=== PATIENT | male | born 1970 | race Caucasian/White ===

== ENCOUNTER → 2016-11-23 | Outpatient (CLI) | payer OTHER ==
[~2016-11-23] VITALS: Ht 184.2 cm; Wt 95.6 kg
[2016-11-23 15:10] VITALS: BP 158/105; PULSE 102; Ht 184.2 cm; Wt 95.6 kg
== END | disposition home or self-care (01) ==
LOC: C.NEUR 14:09
PROVIDERS: ATTEND Internal Medicine Pulmonary Disease
DX: G47.33 Obstructive sleep apnea (adult) (pediatric) (principal); G47.26 Circadian rhythm sleep disorder, shift work type

== ENCOUNTER → 2017-07-30 | Outpatient (CLI) | payer OTHER ==
[2017-07-30 10:25] LABS: ESTIMATED AVERAGE GLUCOSE 166 mg/dl; HA1C FLAG Normal (Normal)
[2017-07-30 10:38] LABS: ALT/SGPT 22 U/L (12-78); AST/SGOT 21 U/L (15-37); BLOOD UREA NITROGEN 20 mg/dl (7-18); BUN/CREATININE RATIO 21.1 (10-20); CARBON DIOXIDE 27 mmol/L (21-32); CHLORIDE 106 mmol/L (98-107); CHOLESTEROL 168 mg/dl (0-200); CREATININE 0.95 mg/dl (0.60-1.40); GLUCOSE 157 mg/dl (70-99); SODIUM 138 mmol/L (136-145); TRIGLYCERIDES 71 mg/dl (0-150); VERY LOW DENSITY LIPOPROT CALC 14 mg/dl
[2017-07-30 10:46] LABS: ALB/GLOB RATIO 1.2 (0.9-2); ALKALINE PHOSPHATASE 116 U/L (45-117); CHOLESTEROL/HDL RATIO 2.3; HDL CHOLESTEROL 73 mg/dl
== END | disposition home or self-care (01) ==
LOC: C.LAB 09:35
PROVIDERS: ATTEND Internal Medicine Endocrinology, Diabetes & Metabolism
DX: E10.9 Type 1 diabetes mellitus without complications (principal); E78.5 Hyperlipidemia, unspecified; E03.9 Hypothyroidism, unspecified

== ENCOUNTER 2017-09-03 23:37 | Emergency (ER) | payer OTHER ==
--- NOTE | 2017-09-03 23:41 | EMERGENCY ROOM VISIT NOTE ---
History First contact with patient: 23:39 Chief Complaint: OTHER COMPLAINT Stated Complaint: OTHER History of Present Illness The patient is a 46 year old male who presents to the Emergency Room with complaints of "body fluid exposure". 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 He then thoroughly irrigated this region. Source patient is undergoing testing. Review of Systems A complete 6-point Review of Systems was discussed with the patient, with pertinent positives and negatives listed in the History of Present Illness. All remaining Review of Systems questions can be considered negative unless otherwise specified. Past Medical/Surgical History Diabetes Family History No pertinent. Social History Patient lives locally and is employed locally. Physical Exam Physical Exam GENERAL -46-year-old male appearing his stated age who is in no acute distress. Communicates well with provider and answers questions appropriately. SKIN - Without rashes. No petechial rashes. The skin around the left eye is unremarkable. Left eye examination is unremarkable. Medical Decision & Procedures Medical Decision Patient was seen and evaluated as above. He presents to us today status post significant body fluid exposure as there was blood of the source patient mixed with the exposed employees left eye. Patient as well as the source patient have consented to baseline testing. Source patient testing is negative. Appropriate paperwork was initiated. A message was left with Braden Tamara Mann. Patient discharged in good condition. Impression Primary Impression: Exposure to blood or body fluid Departure Information Dispostion Home / Self-Care Condition GOOD Referrals Jared Del Angel M.D. (PCP) Patient Instructions My [facility] Additional Instructions You were seen in the emergency Department for exposure to blood/bodily fluids. At this time you have consent to baseline testing. Please call [phone] if you have any questions. Thank you Please follow with [facility].
--- NOTE | 2017-09-04 01:58 | EMERGENCY ROOM VISIT NOTE ---
ED Visit Note First contact with patient: 23:39 The patient was seen and examined with Rocky Perez PA-C. I agree with the history, physical and findings. Please see the note for disposition and details. Patient will follow-up with employee health tomorrow.
[2017-09-04 10:07] LABS: HEPATITIS B AB NEG
== END 2017-09-03 23:45 | disposition home or self-care (01) ==
LOC: C.EDD 23:39
DX: Z77.21 Contact with and (suspected) exposure to potentially hazardous body fluids (principal); Z20.9 Contact with and (suspected) exposure to unspecified communicable disease; E11.9 Type 2 diabetes mellitus without complications

== ENCOUNTER 2017-10-18 23:47 | Emergency (ER) | payer OTHER ==
[~2017-10-18] VITALS: Ht 182.9 cm; Wt 97.5 kg
[2017-10-18 23:51] VITALS: TEMP 36.8; O2SAT 97; Ht 182.9 cm; Wt 97.5 kg
[2017-10-18] MEDS ORDERED: SODIUM CHLORIDE 0.9% 1000ML 1,000 ML IV STA (23:57)
--- NOTE | 2017-10-19 00:07 | EMERGENCY ROOM VISIT NOTE ---
History Report prepared by Cata: Kitty Hopper Under the Supervision of: Dr. Stanley Nettles D.O. First contact with patient: 23:57 Chief Complaint: PALPITATIONS Stated Complaint: PALPATATIONS History of Present Illness The patient is a 46 year old male who presents to the Emergency Room with complaints of intermittent palpitations beginning 5 days ago. The patient states that he had a whole pot of coffee 5 days ago. He also reports that he stopped taking his thyroid medication 3 days ago. He reports that he felt the palpitations laying in bed tonight. The patient denies chest pain, nausea, shortness of breath, weight loss, and weight gain. He states that he is sore from chopping down a tree the other day. The patient states that he had a stress test done 1 year ago. Source of History: patient Onset: 5 days ago Position: chest Quality: other (palpitations ) Timing: intermittent Associated Symptoms: No chest pain, No SOB, No nausea Note: also denies: weight loss, weight gain Review of Systems See HPI for pertinent positives & negatives. A total of 10 systems reviewed and were otherwise negative. Family History No pertinent family history stated. Social History Smoking Status: Never Smoker Marital Status: Housing Status: lives with family, lives with roommate Occupation Status: employed Current/Historical Medications Scheduled Aspirin (Aspirin), 325 MG PO DAILY Atorvastatin (Lipitor), 40 MG PO DAILY Doxycycline (Monohydrate) (Doxycycline Monohydrate), 100 MG PO BID Insulin Human Lispro (Insulin Humalog Pump ), 1 EA N/A UD Levothyroxine Sodium (Levothyroxine Sodium), 100 MCG PO DAILY Allergies Coded Allergies: No Known Allergies (Unverified , 10/19/17) Physical Exam Vital Signs Date Time Temp Pulse Resp B/P (MAP) Pulse Ox O2 Delivery O2 Flow Rate FiO2 10/19/17 03:00 104 13 152/100 10/19/17 02:30 84 15 146/105 95 Room Air 10/19/17 02:00 91 19 141/98 10/19/17 01:36 91 16 157/107 95 Room Air 10/19/17 01:00 96 17 141/87 97 Room Air 10/19/17 00:30 92 21 158/104 96 Room Air 10/19/17 00:17 88 10/19/17 00:06 175/117 10/19/17 00:00 109 16 163/114 96 Room Air 10/18/17 23:58 108 10/18/17 23:57 105 10/18/17 23:51 97 Room Air 10/18/17 23:51 36.8 97 14 163/114 98 Room Air 10/18/17 23:51 97 Room Air Physical Exam GENERAL: Patient is awake, alert, and in no acute distress. Patient is resting comfortably and showing no signs of anxiety EYES: The conjunctivae are clear. The pupils are round and reactive. EARS, NOSE, MOUTH AND THROAT: The nose is without any evidence of any deformity. Mucous membranes are moist tongue is midline NECK: The neck is nontender and supple. RESPIRATORY: Normal respiratory effort is noted there is no evidence of wheezing rhonchi or rales CARDIOVASCULAR: Regular rate and irregular rhythm noted there no murmurs rubs or gallops normal S1 normal S2 GASTROINTESTINAL: The abdomen is soft. Bowel sounds are present in all quadrants. Abdomen is nontender MUSCULOSKELETAL/EXTREMITIES: There is no evidence of gross deformity full range of motion is noted in the hips and shoulders SKIN: There is no obvious evidence of any rash. There are no petechiae, pallor or cyanosis noted. NEUROLOGIC: Patient is awake alert and oriented x3 Medical Decision & Procedures ER Provider Diagnostic Interpretation: Chest X-Ray: Heart size is normal. No free air. No definite infiltrate. No acute disease. No previous. Preliminary Findings Only See Final Report For Complete Findings CTA CHEST: Comparison: None Impression: No PE. Mild bibasilar lung atelectasis. No pleural effusion or pneumothorax. Questionable stone at the gallbladder neck versus artifact. Comment: Lower neck soft tissues are normal No lymphadenopathy Normal heart size Radiologist: Meena Banks M.D. Study ready at 01:39 and initial results transmitted at 02:31 Laboratory Results 10/18/17 23:55 Red Blood Count 5.01, Mean Corpuscular Volume 88.2, Mean Corpuscular Hemoglobin 30.7, Mean Corpuscular Hemoglobin Concent 34.8, Mean Platelet Volume 9.6, Neutrophils (%) (Auto) 50.6, Lymphocytes (%) (Auto) 40.3, Monocytes (%) (Auto) 6.2, Eosinophils (%) (Auto) 2.3, Basophils (%) (Auto) 0.5, Neutrophils # (Auto) 4.26, Lymphocytes # (Auto) 3.39, Monocytes # (Auto) 0.52, Eosinophils # (Auto) 0.19, Basophils # (Auto) 0.04 10/18/17 23:55 Test 10/18/17 00:00 10/18/17 23:55 White Blood Count 8.41 K/uL (4.8-10.8) Red Blood Count 5.01 M/uL (4.7-6.1) Hemoglobin 15.4 g/dL (14.0-18.0) Hematocrit 44.2 % (42-52) Mean Corpuscular Volume 88.2 fL (80-100) Mean Corpuscular Hemoglobin 30.7 pg (25-34) Mean Corpuscular Hemoglobin Concent 34.8 g/dl (32-36) Platelet Count 233 K/uL (130-400) Mean Platelet Volume 9.6 fL (7.4-10.4) Neutrophils (%) (Auto) 50.6 % Lymphocytes (%) (Auto) 40.3 % Monocytes (%) (Auto) 6.2 % Eosinophils (%) (Auto) 2.3 % Basophils (%) (Auto) 0.5 % Neutrophils # (Auto) 4.26 K/uL (1.4-6.5) Lymphocytes # (Auto) 3.39 K/uL (1.2-3.4) Monocytes # (Auto) 0.52 K/uL (0.11-0.59) Eosinophils # (Auto) 0.19 K/uL (0-0.5) Basophils # (Auto) 0.04 K/uL (0-0.2) RDW Standard Deviation 41.7 fL (36.4-46.3) RDW Coefficient of Variation 13.1 % (11.5-14.5) Immature Granulocyte % (Auto) 0.1 % Immature Granulocyte # (Auto) 0.01 K/uL (0.00-0.02) Prothrombin Time 10.4 SECONDS (9.0-12.0) Prothromb Time International Ratio 1.0 (0.9-1.1) Activated Partial Thromboplast Time 26.9 SECONDS (21.0-31.0) Partial Thromboplastin Ratio 1.0 Anion Gap 9.0 mmol/L (3-11) Est Creatinine Clear Calc Drug Dose 103.4 ml/min Estimated GFR () 94.9 Estimated GFR (Non- 81.9 BUN/Creatinine Ratio 18.4 (10-20) Calcium Level 8.9 mg/dl (8.5-10.1) Magnesium Level 2.2 mg/dl (1.8-2.4) Total Bilirubin 0.4 mg/dl (0.2-1) Aspartate Amino Transf (AST/SGOT) 23 U/L (15-37) Alanine Aminotransferase (ALT/SGPT) 32 U/L (12-78) Alkaline Phosphatase 106 U/L (45-117) Total Creatine Kinase 191 U/L (39-308) Creatine Kinase MB 2.0 ng/ml (0.5-3.6) Creatine Kinase MB Ratio 1.0 (0-3.0) Troponin I 0.015 ng/ml (0-0.045) Total Protein 7.6 gm/dl (6.4-8.2) Albumin 4.0 gm/dl (3.4-5.0) Globulin 3.6 gm/dl (2.5-4.0) Albumin/Globulin Ratio 1.1 (0.9-2) Thyroid Stimulating Hormone (TSH) 6.050 uIu/ml (0.300-4.500) Free Thyroxine 1.14 ng/dl (0.80-1.60) Lyme Disease IgG Antibody NEG (NEG) Laboratory results per my review. Medications Administered Medications (Trade) Dose Ordered Sig/Bon Route Start Time Stop Time Status Last Admin Dose Admin Sodium Chloride 1,000 ml @ 999 mls/hr Q1H1M STAT IV 10/18/17 23:57 10/19/17 00:57 DC 10/19/17 00:06 999 MLS/HR Ceftriaxone Sodium 2000 mg/ Dextrose 70 ml @ 100 mls/hr ONE STAT IV 10/19/17 02:38 10/19/17 03:19 DC 10/19/17 02:57 100 MLS/HR ECG Indication: palpitations Rate (beats per minute): 98 Findings: no ectopy, other (no acute ST segment abnormalities ) Comparison ECG Date: no prior available Change: repeat ECG: sinus tachycardia, rate of 121, first degree AV block, ectopic atrial beats, changes new compared to earlier tracing ED Course 2355: The patient was evaluated in room B3B. A complete history and physical examination were performed. 2357: Ordered Sodium Chloride 1,000 ml @ 999 mls/hr IV. Medical Decision Differential diagnosis: Etiologies such as premature contractions, electrolyte abnormality, cardiac dysrhythmia, thyroid dysfunction, pulmonary embolism, infection, gastrointestinal, as well as others were entertained. Nursing notes reviewed. The patient is a 46-year-old male who presented to the emergency department for an evaluation of palpitations. The patient did not have any specific symptoms associated with the palpitations however he is noted that they are becoming more frequent and more apparent to him over the last few days. The patient denies having any chest pain or shortness of breath. At times the rate was tachycardic with what appeared to be frequent PACs but also could be consistent with a wandering atrial pacemaker. I discussed patient's laboratory and radiographic studies with him. He was treated with IV fluids and IV antibiotics in the emergency department for presumed Lyme disease. I discussed the patient' s condition with his primary care physician. He was encouraged to rest and avoid any strenuous activity. He was also encouraged to avoid any further caffeine intake. He was also encouraged to return the emergency apartment immediately if symptoms change worsen or the need arises. Medication Reconcilliation Current Medication List: was personally reviewed by me Blood Pressure Screening Patient's blood pressure: Elevated blood pressure Blood pressure disposition: Referred to PCP Consults Time Called: [phone] Consulting Physician: Dr Nadeem Zayas Returned Call: [phone] Impression Primary Impression: Palpitations Additional Impressions: PAC (premature atrial contraction) Tachycardia Scribe Attestation The scribe's documentation has been prepared under my direction and personally reviewed by me in its entirety. I confirm that the note above accurately reflects all work, treatment, procedures, and medical decision making performed by me. Departure Information Prescriptions Doxycycline (Monohydrate) (DOXYCYCLINE MONOHYDRATE) 100 Mg Tab 100 MG PO BID, #42 TABS Prov: Stanley Nettles, DO 10/19/17 Referrals Jared Del Angel M.D. (PCP) Patient Instructions My [facility] Problem Qualifiers
[2017-10-19 00:14] LABS: BASO % 0.5 %; BASO ABS # 0.04 K/uL (0-0.2); COMPLETE YES; EOS % 2.3 %; HEMATOCRIT 44.2 % (42-52); IG% 0.1 %; LYMPH % 40.3 %; LYMPH ABS # 3.39 K/uL (1.2-3.4); MEAN CELL VOLUME 88.2 fL (80-100); MEAN CORPUSCULAR HEMOGLOBIN 30.7 pg (25-34); MEAN CORPUSCULAR HGB CONC 34.8 g/dl (32-36); MEAN PLATELET VOLUME 9.6 fL (7.4-10.4); MONO % 6.2 %; NEUT % 50.6 %; PLATELET COUNT 233 K/uL (130-400); RED BLOOD COUNT 5.01 M/uL (4.7-6.1); WHITE BLOOD COUNT 8.41 K/uL (4.8-10.8)
[2017-10-19 00:26] LABS: PROTHROMBIN TIME (PATIENT) 10.4 SECONDS (9.0-12.0)
[2017-10-19 00:33] LABS: BUN/CREATININE RATIO 18.4 (10-20); CALCIUM 8.9 mg/dl (8.5-10.1); CREATININE 1.08 mg/dl (0.60-1.40); MAGNESIUM 2.2 mg/dl (1.8-2.4); POTASSIUM 3.4 mmol/L (3.5-5.1)
[2017-10-19 00:41] LABS: ALB/GLOB RATIO 1.1 (0.9-2); THYROID STIMULATING HORMONE 6.05 uIu/ml (0.300-4.500)
[2017-10-19] MEDS ORDERED: OPTIRAY 320 IV PRN (01:15)
[2017-10-19] MEDS ORDERED: ATOR-24 PO (01:42)
[2017-10-19] MEDS ORDERED: LEVO100T7 PO (01:42)
[2017-10-19] MEDS ORDERED: ASPI325T45 PO (01:42)
[2017-10-19] MEDS ORDERED: INSPMPHMLG (01:42)
[2017-10-19 02:14] LABS: LYME DISEASE AB IGG NEG (NEG)
[2017-10-19 02:21] LABS: LYME DISEASE AB IGM EQUIVOCAL (NEG)
[2017-10-19 02:30] VITALS: O2SAT 95
[2017-10-19] MEDS ORDERED: CEFTRIAXONE SOD INJ 2,000 MG in DEXTROSE 5% 50ML 50 ML IV STA (02:38)
[2017-10-19] MEDS ORDERED: DOXY100T17 PO (02:43)
[2017-10-19 03:00] VITALS: BP 152/100; PULSE 104
[2017-10-19 06:26] LABS: URINE APPEARANCE CLEAR (CLEAR); URINE BILIRUBIN NEG (NEG); URINE COLOR YELLOW; URINE NITRITE NEG (NEG); URINE SPECIFIC GRAVITY 1.015 (1.000-1.030); UROBILINOGEN NEG (NEG)
[2017-10-19 06:27] LABS: MANUAL MICROSCOPIC REQUIRED? NO; REVIEW REQ? NO
--- NOTE | 2017-10-19 06:39 | DIAGNOSTIC IMAGING REPORT ---
(CHEST FOR PE) ANGIO WITH CT DOSE: 513.51 mGy.cm HISTORY: 46 years-old Male presents with acute cardiac palpitations years TECHNIQUE: Multiple CTA images of the chest were obtained after the intravenous administration of 92 ml Optiray 320. Coronal and sagittal MIPS were obtained from the axial data set and were submitted for review. A dose lowering technique was utilized adhering to the principles of ALARA. COMPARISON: Portable chest radiograph 10/19/2017. FINDINGS: CTA: There is adequate opacification of the pulmonary arteries to the level of the distal segmental branches without convincing evidence of acute pulmonary embolism. The thoracic aorta is normal in course and caliber without aneurysm or dissection. Heart size is normal. CT CHEST: No dominant thyroid nodule is seen. No pathologically adenopathy by CT size criteria. There is no pneumothorax, pleural effusion or focal airspace consolidation. Mild dependent bibasilar atelectasis. 4 mm subpleural nodule seen within the right middle lobe, image 112 series 4 which is statistically benign, however is indeterminate. Central airways are patent. Perifissural lymph node is seen on image 150 series 4 adjacent to the right middle lobe. Increased attenuation near the gallbladder neck, image 1 of series 4 may be artifactual or alternatively may reflect cholelithiasis. The osseous structures appear intact. IMPRESSION: 1. No acute intrathoracic abnormality identified, specifically no acute aortic pathology or evidence of pulmonary thromboembolic disease. 2. 4 mm pleural-based solid nodule of the right middle lobe is indeterminate, however statistically benign. Please refer to below summary of Fleischner criteria recommendations for follow-up of incidental CT nodules ([place], Guidelines for management of small pulmonary nodules detected on CT scans: A statement from the Fleischner Society, Radiology 237: [phone].) SOLID NODULES Solitary nodule size: <6 mm * Low risk patients: no follow-up needed * high risk patients: optional CT at 12 months Note: newly detected indeterminate nodule in persons 35 years of age or older. * Low risk patients: minimal or absent history of smoking and/or other known risk factors * high risk patients: history of smoking or of other known risk factors (e.g. first degree relative with lung cancer, or exposure to asbestos, radon, uranium) * if a nodule up to 8 mm is partly solid or is ground glass further follow-up is required after 24 months to exclude possible slow growing adenocarcinoma (DANIEL) The above report was generated using voice recognition software. It may contain grammatical, syntax or spelling errors. Electronically signed by: Jasbir Gonzales M.D. 10/19/2017 6:37 AM Dictated Date/Time: 10/19/2017 6:31 AM
--- NOTE | 2017-10-19 08:24 | DIAGNOSTIC IMAGING REPORT ---
CHEST ONE VIEW PORTABLE HISTORY: 46 years-old Male EVALUATE RESPIRATORY DISTRESS.DYSPNEA acute respiratory distress COMPARISON: CTA of the chest of same day TECHNIQUE: Portable upright AP view of the chest FINDINGS: Cardiomediastinal and hilar silhouettes are within normal limits. There is no pneumothorax, pleural effusion, focal airspace consolidation or overt pulmonary edema. Bones of the chest are grossly intact. IMPRESSION: No acute cardiopulmonary process. The above report was generated using voice recognition software. It may contain grammatical, syntax or spelling errors. Electronically signed by: Jasbir Gonzales M.D. 10/19/2017 8:23 AM Dictated Date/Time: 10/19/2017 8:22 AM
== END 2017-10-19 03:41 | disposition home or self-care (01) ==
LOC: C.EDB 23:48
DX: I49.1 Atrial premature depolarization (principal); R00.2 Palpitations; R00.0 Tachycardia, unspecified; Z79.82 Long term (current) use of aspirin; Z79.4 Long term (current) use of insulin; Z79.899 Other long term (current) drug therapy

== ENCOUNTER → 2017-11-10 | Outpatient (CLI) | payer OTHER ==
[~2017-11-10] MED LIST: ASPECOTC PO; ATOR-24 PO; DOXY100T17 PO; INSPMPHMLG; LEVO100T7 PO
[2017-11-10 10:29] LABS: INFLUENZA B PCR Neg for Influ B (NEG)
[2017-11-10 10:30] LABS: INFLUENZA A PCR POS for Influ A (NEG)
== END | disposition home or self-care (01) ==
LOC: C.LAB 09:14
PROVIDERS: ATTEND Emergency Medicine
DX: R05 Cough (principal); R09.81 Nasal congestion

== ENCOUNTER 2021-04-22 11:03 | Inpatient (IN) ==
[2021-04-22] MEDS ORDERED: ONDANSETRON INJ 2 MG/ML 2 ML VIAL ONE (11:07)
[2021-04-22] MEDS ORDERED: ONDANSETRON INJ 2 MG/ML 2 ML VIAL IV STA (11:11)
[2021-04-22] MEDS ORDERED: SODIUM CHLORIDE 0.9% 1000ML 1,000 ML IV SCH ×3 (11:15→17:34)
[2021-04-22] MEDS ORDERED: SODIUM CHLORIDE 0.9% 1000ML 1,000 ML IV ONE (11:16)
[2021-04-22 11:23] LABS: Mean Corpuscular Hgb Conc 33.7 g/dL (32-36); Platelet Count 305 K/uL (130-400)
[2021-04-22 11:47] LABS: Base Excess VBG -9.9 mEq/L; Oxygen Saturation VBG 80.4 %; pH VBG 7.25 (7.36-7.41)
[2021-04-22 11:58] LABS: Appearance Urine Clear (Clear); Bilirubin Urine Negative (Negative); Blood Urine Negative (Negative); Color Urine Yellow; Glucose Urine UA 3+ (Negative); Ketones Urine 3+ (Negative); Leukocyte Esterase Urine Negative (Negative); Nitrite Urine Negative (Negative); Protein Urine Negative (Negative); Specific Gravity Urine 1.029 (1.000-1.030); Urobilinogen Urine Negative (Negative)
[2021-04-22 12:01] LABS: Albumin Globulin Ratio 1.4 (0.9-2); Albumin Level 4.3 gm/dl (3.4-5.0); BUN Creatinine Ratio 20.6 (10-20); Bilirubin,Total 1.2 mg/dl (0.2-1); Calcium 9.3 mg/dl (8.5-10.1); Creatinine Clr Calc Pharmacy 65.5 ml/min; Est GFR (Non-African American) 54.4 ml/min; Globulin 3.2 gm/dl (2.5-4.0); Magnesium 2.3 mg/dl (1.8-2.4); Potassium 4.3 mmol/L (3.5-5.1); Thyroid Stimulating Hormone 0.654 uIu/ml (0.300-4.500); Total Protein 7.5 gm/dl (6.4-8.2)
[2021-04-22 12:02] LABS: Basophils # (auto) 0.03 K/uL (0-0.2); Basophils % (auto) 0.2 %; Hematocrit (blood only) 45.4 % (42-52); Hemoglobin 15.3 g/dL (14.0-18.0); Immature Granulocytes # (auto) 0.04 K/uL (0.00-0.02); Immature Granulocytes % (auto) 0.2 %; Lymphocytes # (auto) 1.38 K/uL (1.2-3.4); Lymphocytes % (auto) 8.2 %; Mean Corpuscular Hemoglobin 31.4 pg (25-34); Mean Corpuscular Volume 93.2 fL (80-100); Monocytes # (auto) 0.61 K/uL (0.11-0.59); Monocytes % (auto) 3.6 %; Neutrophils # (auto) 14.73 K/uL (1.4-6.5); Neutrophils % (auto) 87.8 %; Red Blood Count 4.87 M/uL (4.7-6.1); White Blood Count 16.79 K/uL (4.8-10.8)
[2021-04-22] MEDS ORDERED: DKA GOAL RANGE 150-250 mg/dl ONE ×2 (12:07→17:34)
[2021-04-22] MEDS ORDERED: ED DKA INSULIN DRIP ONE (12:07)
[2021-04-22] MEDS ORDERED: NovoLIN-R BOLUS FROM BAG IV ONE (12:14)
[2021-04-22] MEDS ORDERED: GLUCOSE 40% GEL 15 GM TUBE PO PRN (12:15)
[2021-04-22] MEDS ORDERED: CARBOHYDRATES FOR HYPOGLYCEMIA PO PRN (12:15)
[2021-04-22] MEDS ORDERED: GLUCAGON FOR INJ 1 MG VIAL IM PRN (12:15)
[2021-04-22] MEDS ORDERED: DEXTROSE 50% 50 ML SYRINGE IV PRN (12:15)
[2021-04-22] MEDS ORDERED: GLUCOSE 10 TABS/TUBE PO PRN (12:15)
[2021-04-22] MEDS ORDERED: INSULIN REGULAR 250 UNITS in SODIUM CHLORIDE 0.9% 247.5 ML IV SCH ×2 (12:15→17:34)
[2021-04-22] MEDS ORDERED: SODIUM CHLOR 0.45% + 20MEQ KCL 20 MEQ/1,000 ML BAG IV SCH (12:45)
--- NOTE | 2021-04-22 12:54 | Electrocardiogram Report ---
Test Reason : Blood Pressure : / mmHG Vent. Rate : 095 BPM Atrial Rate : 095 BPM P-R Int : 152 ms QRS Dur : 084 ms QT Int : 370 ms P-R-T Axes : 045 021 061 degrees QTc Int : 464 ms Normal sinus rhythm Normal ECG When compared with ECG of 18-OCT-2017 23:56, NE interval has decreased Incomplete right bundle branch block no longer present Confirmed by Kiran Toscano ([id number]) on 04/22/2021 12:54:09 PM Referred By: REFERRED SELF Confirmed By:Kiran Toscano
--- NOTE | 2021-04-22 15:52 | History & Physical Report ---
Date of Service April 22, 2021 Assessment & Plan (1) Diabetes type 1, controlled: Patient in DKA with an anion gap of 18 bicarbonate of 19 on serum VBG with pH 7.25 to be put on the DKA protocol he was given crystalloid resuscitation in the emergency department Patient cannot recall an inciting event for his diabetes to decompensate it may be a mechanical failure of his meter and/or his pump connection site we are attempting to get him a new meter and he did he will replace his site once we return from the insulin drip to his insulin pump No additional treatment for any infectious etiologies will be undertaken, he did have negative Covid testing Patient will be on lisinopril for nephro prophylaxis for his diabetes (2) Dyslipidemia: Continue atorvastatin 80 (3) Hypothyroidism: Synthroid will continue (4) Atrial tachycardia: Patient is on Cardizem 240 this will be maintained he took his dose this morning of admission History of Present Illness Primary Care Provider: Jared Mann MD 58-year-old male who is type I diabetic usually on an insulin pump who presents with increased nausea some visual changes and weakness and lethargy. Patient states that overnight he was awoken with a notification that his glucose was elevated. He attempted to bolus himself and he also did change out his insulin pump site he has been trying to manage his glucose at work the morning of presentation with boluses. It however was noted that when we compared the emergency department's glucometer and his glucometer his glucometer seem to be lower by around a level of 200. Patient states that overnight his glucometer was in the higher or near 500 range currently he may have been really 700. Patient to take all his other typical daily medications prior to her coming to his worksite this morning he is feeling much better after fluid resuscitation. He did have the beginnings of DKA with the decrease in his bicarbonate and anion gap of 18 Allergies Allergy/AdvReac Type Severity Reaction Status Date / Time No Known Drug Allergies Allergy Verified 04/22/21 13:43 Home Medications Medication Instructions Recorded Confirmed Type aspirin 325 mg tablet 325 mg PO DAILY tab 08/28/19 04/22/21 History diltiazem HCl 240 mg 240 mg PO DAILY cap 08/28/19 04/22/21 History capsule,extended release 24 hr insulin U-500 syringe-needle / #100 ea 08/28/19 12/26/20 History mL 31 gauge x 15/64" atorvastatin 80 mg tablet 80 mg PO DAILY #90 tab 04/25/20 04/22/21 Rx Accu-Chek Fastclix Lancet Drum #300 ea NS 05/16/20 12/26/20 Rx Accu-Chek Guide test strips #300 ea NS 05/16/20 12/26/20 Rx Novolog U-100 Insulin aspart 100 100 units CONTINUOUS SUBCUTANEOUS 05/16/20 04/22/21 Rx unit/mL subcutaneous solution INFUSION DAILY 90 Days #90 ml NS lisinopril 5 mg tablet 5 mg PO DAILY #90 tab 12/26/20 04/22/21 Rx cholecalciferol (vitamin D3) 50 2,000 unit PO DAILY #30 cap 03/20/21 04/22/21 Rx mcg (2,000 unit) capsule levothyroxine 112 mcg tablet 112 mcg PO DAILY #90 tab 03/20/21 04/22/21 Rx Past Med/Surg History Medical History (Updated 12/25/19 @ 16:17 by Kashmir Lockett MD) Diabetes type 1, controlled Dyslipidemia James's thyroiditis Hypertension Hypothyroidism Social History (Updated 12/25/19 @ 15:33 by Farida Montalvo) Smoking Status: Never smoker Hx Alcohol Use: Yes Alcohol Intake Frequency Comment: Social Preferred Language: Pashto Feels Safe at Home: Yes Review of Systems Review of Systems: Moderate distress and fatigue no headache, no visual changes no speech or swallowing issues no chest pain, pressure or palpitations no shortness of breath, cough or wheezes no abdominal pain, some persistent nausea without vomiting, no diarrhea or constipation no dysuria, hematuria or frequency no focal joint pain or swelling no back pain, CVA tenderness or radicular pain no bruising, bleeding or rashes no focal signs of weakness or numbness or altered sensation no complaints of anxiety or depression.. Physical Exam Physical Exam: The patient appeared well nourished and normally developed. Vital signs as documented. Head exam is normocephalic atraumatic Neck is without JVD, thyromegaly, or carotid bruits. Lungs are clear to auscultation, no focal loss of breath sounds Cardiac exam, Rhythm is regular.. No murmurs, rubs or gallops. Abdominal exam reveals normal bowel sounds, soft non tender, no masses Extremities are nonedematous and both pedal pulses are present Neurologic exam is alert and oriented, no focal loss of strength or sensation Skin is without bruises or rashes Psychologically is without concerns for anxiety or depression Results & Data Results & Data ([facility]) Vital Signs (Past 12 Hours) Vital Signs Temp Pulse Pulse Resp BP BP Pulse Ox 04/22/21 14:30 88 18 124/78 98 04/22/21 11:04 98.1 F 99 H 20 126/64 98 Code Status & VTE Plan VTE Prophylaxis Plan VTE Prophylaxis will be ordered: No PG Care Time/CCT Total # of Minutes Spent Total Time Spent with Patient: Total time spent is greater than 50% in coordination of care (as documented) at patient's floor/unit and/or counseling patient: Coding Level of Care Code 62919 Initial Inpt Care Lvl 2 Diagnoses Diabetes type 1, controlled E10.9 Dyslipidemia E78.5 Hypothyroidism E03.9 Atrial tachycardia I47.1
[2021-04-22] MEDS ORDERED: D5W AND 1/2NSS + 20MEQ KCL 20 MEQ/1,000 ML BAG IV SCH (16:45)
[2021-04-22] MEDS ORDERED: PENDING D5 1/2NS+20mEq KCL IVF SCH (17:34)
[2021-04-22] MEDS ORDERED: NORMOSOL-R 1,000 ML IV SCH (17:34)
[2021-04-22] MEDS ORDERED: INSULIN ASPART 100 UNITS/ML 3 ML PEN SC SCH (17:34)
[2021-04-22] MEDS ORDERED: PENDING 1/2NSS+20mEq KCL IVF SCH (17:34)
[2021-04-22] MEDS ORDERED: DC ALL PREVIOUSLY ORDERED DIABETES MEDS ONE (17:34)
[2021-04-22] MEDS ORDERED: ONDANSETRON INJ 2 MG/ML 2 ML VIAL IV PRN (17:34)
[2021-04-22] MEDS ORDERED: ACETAMINOPHEN 325 MG TAB PO PRN (17:34)
[2021-04-22] MEDS ORDERED: ALUMINUM/MAGNESIUM SUSP 30 ML UDC PO PRN (17:34)
[2021-04-22] MEDS ORDERED: PHARMACY GLYCEMIC MGMT CONSULT PRN (17:52)
[2021-04-22] MEDS: INSULIN ASPART 100 UNITS/ML 3 ML PEN SC SCH ×3 (18:15→21:16)
[2021-04-22 18:47] LABS: BUN Creatinine Ratio 18.5 (10-20); Calcium 8.2 mg/dl (8.5-10.1); Creatinine Clr Calc Pharmacy 69.8 ml/min; Est GFR (Non-African American) 58.7 ml/min; Magnesium 2.2 mg/dl (1.8-2.4); Phosphorus 2.5 mg/dl (2.5-4.9)
--- NOTE | 2021-04-22 19:51 | Pharmacy Report ---
Pharmacy Glycemic Short Note 2 - Date of Service April 22, 2021 - Glycemic Short BSG Results (Last 24 hours): 04/22/21 04/22/21 04/22/21 11:05 12:30 13:57 Glucose 528 H* POC Glucose 451 H* 376 H* 04/22/21 04/22/21 04/22/21 15:03 16:20 17:31 Glucose POC Glucose 298 H 202 H 241 H 04/22/21 18:06 Glucose POC Glucose 277 H OUTPATIENT ANTIDIABETIC REGIMEN: * Medtronic 670G insulin pump- Novolog * Basal: 1.05 units/hr x 24 hours * CR 1:10 * CF 45 * A1c 8.2% 03/16/21 ASSESSMENT: * 50 yo with history of type 1 diabetes treated outpatient with Medtronic 670G insulin pump (Novolog) admitted with mild DKA. * Dextrose + Potassium added to IVF once patient within goal range, however, BSGs trended upward after addition, patient ordered diet and did have some uncovered carbohydrates. Gap closed on repeat labs, bicarb 22, VBG 7.41. * Discussed with physician, removed dextrose from fluids, infusion rate may need empirically adjusted if BSGs fall too quickly with removal. Per physician will keep same goal range for now, drip will target BSG of 200 mg/dL. * Plan to continue insulin infusion throughout the night and transition to insulin pump in the morning when new pump supplies are available. PLAN FOR INPATIENT GLYCEMIC CONTROL: * Insulin infusion currently running @ 7.4 units/hr- will reduce to ~0.05 unit/kg (4.5 units/hr) with next check if BSG declining rapidly
[2021-04-22] MEDS: POTASSIUM CHLORIDE 20 MEQ in SODIUM CHLORIDE 0.45 % 1,000 ML IV SCH (20:09)
[2021-04-22 22:13] LABS: BUN Creatinine Ratio 17.2 (10-20); Calcium 8.5 mg/dl (8.5-10.1); Creatinine Clr Calc Pharmacy 60.6 ml/min; Est GFR (African American) 57.4 ml/min; Est GFR (Non-African American) 49.5 ml/min; Magnesium 2.4 mg/dl (1.8-2.4); Phosphorus 2.3 mg/dl (2.5-4.9); Potassium 4.3 mmol/L (3.5-5.1)
[2021-04-23] MEDS ORDERED: NovoLOG INSULIN PUMP SCH (01:00)
[2021-04-23] MEDS ORDERED: INSULIN ASPART 100 UNITS/ML VIAL SC PRN (01:00)
[2021-04-23 01:58] LABS: BUN Creatinine Ratio 24.5 (10-20); Creatinine Clr Calc Pharmacy 85.8 ml/min; Est GFR (African American) 87.4 ml/min; Est GFR (Non-African American) 75.4 ml/min; Magnesium 2.1 mg/dl (1.8-2.4); Potassium 4.3 mmol/L (3.5-5.1)
[2021-04-23 02:00] LABS: Phosphorus 2.9 mg/dl (2.5-4.9)
[2021-04-23] MEDS: POTASSIUM CHLORIDE 20 MEQ in SODIUM CHLORIDE 0.45 % 1,000 ML IV SCH (03:35)
[2021-04-23] MEDS ORDERED: LEVOTHYROXINE SODIUM 112 MCG TABLET PO SCH (06:30)
[2021-04-23 07:03] LABS: BUN Creatinine Ratio 21.5 (10-20); Calcium 8.3 mg/dl (8.5-10.1); Creatinine Clr Calc Pharmacy 82.9 ml/min; Est GFR (African American) 83.8 ml/min; Est GFR (Non-African American) 72.3 ml/min; Magnesium 2.3 mg/dl (1.8-2.4)
[2021-04-23 07:17] LABS: Beta-Hydroxybutyrate 28.07 mg/dl (0.2-2.81)
[2021-04-23] MEDS: INSULIN ASPART 100 UNITS/ML 3 ML PEN SC SCH (08:07)
[2021-04-23] MEDS ORDERED: lisinopril 5 MG TAB PO SCH (09:00)
[2021-04-23] MEDS ORDERED: ATORVASTATIN 40 MG TAB PO SCH (09:00)
[2021-04-23] MEDS ORDERED: ASPIRIN 325 MG ECTAB PO SCH (09:00)
[2021-04-23] MEDS ORDERED: dilTIAZem HCL 240 MG CAPCR PO SCH (09:00)
[2021-04-23] MEDS ORDERED: CHOLECALCIFEROL 1,000 UNITS 25 MCG TAB PO SCH (09:00)
[2021-04-23] MEDS ORDERED: INSULIN GLARGINE SOLOSTAR 100 UNITS/ML 3 ML PEN SC ONE (10:00)
--- NOTE | 2021-04-23 10:09 | Pharmacy Report ---
Pharmacy Glycemic Short Note 2 - Date of Service April 23, 2021 - Glycemic Short BSG Results (Last 24 hours): 04/22/21 04/22/21 04/22/21 11:05 12:30 13:57 Glucose 528 H* POC Glucose 451 H* 376 H* 04/22/21 04/22/21 04/22/21 15:03 16:20 17:31 Glucose POC Glucose 298 H 202 H 241 H 04/22/21 04/22/21 04/22/21 18:06 18:22 18:59 Glucose 295 H POC Glucose 277 H 275 H 04/22/21 04/22/21 04/22/21 20:02 21:06 21:37 Glucose 223 H POC Glucose 298 H 245 H 04/22/21 04/22/21 04/22/21 22:03 23:02 23:58 Glucose POC Glucose 191 H 132 H 128 H 04/23/21 04/23/21 04/23/21 01:25 05:46 05:48 Glucose 205 H POC Glucose 310 H* 347 H* 04/23/21 04/23/21 04/23/21 05:56 06:42 07:20 Glucose 306 H* POC Glucose 252 H 261 H 04/23/21 04/23/21 07:58 09:02 Glucose POC Glucose 205 H 231 H OUTPATIENT ANTIDIABETIC REGIMEN: * Med[employer]onic 670G insulin pump- Novolog * Basal: 1.05 units/hr x 24 hours * CR 1:10 * CF 45 * A1c 8.2% 03/16/21 ASSESSMENT: 04/23/21 * Patient attempted to transition back to insulin pump last night, but blood sugars climbed back up d/t pump failure. Patient restarted on insulin drip, currently running at 2.8units/hr. * Patient's only issue at this time is hyperglycemia/pump failure, will give Lantus dose to cover patient and send home. Discussed plan with patient, he has all new supplies at home and he will try them when he gets home, if those fail he will call [employer] for new pump, which will arrive within 24 hours. * If pump fails, patient aware to take additional dose of Lantus tonight if BSG > 180mg/dl. * If pump works and blood sugars trending down/ causing hypoglycemia, pt aware to hold his basal rate for a few hours until euglycemic while Lantus is on board with pump. * Reviewed using Novolog and Lantus pen with patient, patient competent to use to prevent re-admission. * Reviewed with JENNIFER Cox to send home both insulin pens and needles. * Patient has CGM. * Patient has plenty of insulin for pump. 04/22/21 * 50 yo with history of type 1 diabetes treated outpatient with Med[employer]onic 670G insulin pump (Novolog) admitted with mild DKA. * Dextrose + Potassium added to IVF once patient within goal range, however, BSGs trended upward after addition, patient ordered diet and did have some uncovered carbohydrates. Gap closed on repeat labs, bicarb 22, VBG 7.41. * Discussed with physician, removed dextrose from fluids, infusion rate may need empirically adjusted if BSGs fall too quickly with removal. Per physician will keep same goal range for now, drip will target BSG of 200 mg/dL. * Plan to continue insulin infusion throughout the night and transition to insulin pump in the morning when new pump supplies are available. PLAN FOR INPATIENT GLYCEMIC CONTROL: * Insulin infusion - 2.8 units/hr - overlap 2 hours with Lantus, then DC for discharge * Lantus 25 units SQ x 1 dose now * Discharge home and restart pump * Patient to take Novolog and Lantus pens home and use if needed for further pump failures * Lantus SQ tonight for pump failure * Hold basal rate temporarily on pump at home if hypoglycemic with Lantus on board
--- NOTE | 2021-04-23 17:22 | Discharge Summary ---
Date of Service April 23, 2021 Admission HPI Per Admitting Provider 58-year-old male who is type I diabetic usually on an insulin pump who presents with increased nausea some visual changes and weakness and lethargy. Patient states that overnight he was awoken with a notification that his glucose was elevated. He attempted to bolus himself and he also did change out his insulin pump site he has been trying to manage his glucose at work the morning of presentation with boluses. It however was noted that when we compared the emergency department's glucometer and his glucometer his glucometer seem to be lower by around a level of 200. Patient states that overnight his glucometer was in the higher or near 500 range currently he may have been really 700. Patient to take all his other typical daily medications prior to her coming to his worksite this morning he is feeling much better after fluid resuscitation. He did have the beginnings of DKA with the decrease in his bicarbonate and anion gap of 18 Principal Diagnosis Diabetic Keto Acidosis Discharge Exam The patient appeared well Vital signs as documented. Lungs are clear to auscultation and appear unlabored Cardiac exam, Rhythm is regular.. No murmurs, rubs or gallops. Abdominal exam reveals normal bowel sounds, soft non tender, no masses Extremities are nonedematous and both pedal pulses are normal. Neurologic exam is alert and oriented, no focal loss of strength or sensation Skin is without bruises or rashes Psychologically is without concerns for anxiety or depression. Discharge Data Allergies Allergy/AdvReac Type Severity Reaction Status Date / Time No Known Drug Allergies Allergy Verified 04/22/21 13:43 Hospital Course (1) Diabetes type 1, controlled: Patient in DKA with an anion gap of 18 bicarbonate of 19 on serum VBG with pH 7.25 to be put on the DKA protocol he was given crystalloid resuscitation in the emergency department Patient cannot recall an inciting event for his diabetes to decompensate it may be a mechanical failure of his meter and/or his pump connection site we are attempting to get him a new meter and he did he will replace his site once we return from the insulin drip to his insulin pump, however he will have a new pump mailed to him and will be on bolus lantus 25 sc bid until the pump arrives in the main, pt was given supplies. No additional treatment for any infectious etiologies will be undertaken, he did have negative Covid testing Patient will be on lisinopril for nephro prophylaxis for his diabetes, (2) Dyslipidemia: Continue atorvastatin 80 (3) Hypothyroidism: Synthroid will continue (4) Atrial tachycardia: Patient is on Cardizem 240 this will be maintained he took his dose this morning of admission Total Time Total Time Spent Total Time Spent (In Minutes): It required greater than 30 minutes to prepare this patient for discharge Discharge Plan Discharge Items Patient Disposition: Home - Self-Care Reason For Visit: DIABETIC KETOACIDOSIS Discharge Diagnosis: diabetic ketoacidosis Activity: Resume your previous activity Non-emergency contact: Primary Care Provider Call non-emergency contact if: you have any medication questions Follow-up/Referrals: Jared Mann MD [Primary Care Provider] - Diet: Carb Count or DM1 Addtl Attending Provider Instructions: please hydrate and follow glucoses carefully if your pump is not working well, please use subcutaneous insulin twice a day Pending Studies at Discharge: No Stand-Alone Forms: My vLine, Smoking Cessation Medications and DC Order Prescriptions: New Basaglar KwikPen U-100 Insulin 100 unit/mL (3 mL) insulin pen 25 unit subcut BID Qty: 6 RF: 5 Basaglar KwikPen U-100 Insulin 100 unit/mL (3 mL) insulin pen 25 unit subcut BID Qty: 6 RF: 0 Continued atorvastatin 80 mg tablet 80 mg PO DAILY Qty: 90 RF: 3 (DME) Accu-Chek Guide test strips Strip See Dose Instructions .ROUTE .MEDSUPPLY Qty: 300 RF: 3 Novolog U-100 Insulin aspart 100 unit/mL solution 100 units continuous subcutaneous infusion DAILY 90 Days Qty: 90 RF: 3 (DME) lancets [Accu-Chek Fastclix Lancet Drum] Misc See Dose Instructions .ROUTE .MEDSUPPLY Qty: 300 RF: 3 levothyroxine 112 mcg tablet 112 mcg PO DAILY Qty: 90 RF: 3 cholecalciferol (vitamin D3) 50 mcg (2,000 unit) capsule 2,000 unit PO DAILY Qty: 30 RF: 0 aspirin 325 mg tablet 325 mg PO DAILY RF: 0 (DME) BD Insulin Syringe U-500 1/2 mL 31 gauge x 15/64" syringe See Dose Instructions .ROUTE .MEDSUPPLY Qty: 100 RF: 0 diltiazem HCl 240 mg capsule,extended release 24hr 240 mg PO DAILY RF: 0 lisinopril 5 mg tablet 5 mg PO DAILY Qty: 90 RF: 3 Discharge Orders: Discharge Order (Routine); Ordered 04/23/21 Ordered By: Yo Oliva/Other Patient Handouts: Diabetes: Sick-Day Plan Admission Data Admit Date/Time: 04/22/21 12:44 Attending Provider: Yo Gonzáles Admit Provider: Yo Gonzáles Primary Care Provider: Jared Mann Other Interventions: Discharge Summary Assessment (RN) Last Done: 04/23/21 10:45 Coding Level of Care Code D/C Day Management >30 mins Diagnoses Diabetes type 1, controlled E10.9 Dyslipidemia E78.5 Hypothyroidism E03.9 Atrial tachycardia I47.1
--- NOTE | 2021-04-23 20:18 | Emergency Department Note ---
History of Present Illness General Chief complaint: Hyperglycemia Time Seen by Provider: 04/22/21 11:09 Source: patient and RN notes reviewed Mode of arrival: ambulatory Limitations: no limitations History of Present Illness Provider complaint: Nausea, vomiting, high blood sugars This patient is a 50-year-old male who presents emergency department with complaints of nausea, vomiting and elevated blood sugars. Patient states his blood sugars have been high for at least 24 hours between 300 and 400. He has been up urinating frequently throughout the night. He does wear an insulin pump and the sensor has been changed. He states he changed the site last night before bed. Patient also states he had ice cream before bed and got a low blood sugar reading and he was not sure how to interpret that, given the recent high readings. He has been trying to lower his blood sugar with boluses of insulin through the pump today. He denies any recent fevers, chills, chest pain or shortness of breath. He has not been feeling well and believes he needs IV fluids. Of note he is vaccinated against Covid. Home Medications Medication Instructions Recorded Confirmed Type aspirin 325 mg tablet 325 mg PO DAILY tab 08/28/19 04/22/21 History diltiazem HCl 240 mg 240 mg PO DAILY cap 08/28/19 04/22/21 History capsule,extended release 24 hr insulin U-500 syringe-needle 11/19 #100 ea 08/28/19 12/26/20 History mL 31 gauge x 15/64" atorvastatin 80 mg tablet 80 mg PO DAILY #90 tab 04/25/20 04/22/21 Rx Accu-Chek Fastclix Lancet Drum #300 ea NS 05/16/20 12/26/20 Rx Accu-Chek Guide test strips #300 ea NS 05/16/20 12/26/20 Rx Novolog U-100 Insulin aspart 100 100 units CONTINUOUS SUBCUTANEOUS 05/16/20 04/22/21 Rx unit/mL subcutaneous solution INFUSION DAILY 90 Days #90 ml NS lisinopril 5 mg tablet 5 mg PO DAILY #90 tab 12/26/20 04/22/21 Rx cholecalciferol (vitamin D3) 50 2,000 unit PO DAILY #30 cap 03/20/21 04/22/21 Rx mcg (2,000 unit) capsule levothyroxine 112 mcg tablet 112 mcg PO DAILY #90 tab 03/20/21 04/22/21 Rx insulin glargine [Basaglar KwikPen 25 unit SUBCUT BID #6 ml 04/23/21 Rx U-100 Insulin] insulin glargine [Basaglar KwikPen 25 unit SUBCUT BID #6 ml 04/23/21 Rx U-100 Insulin] Allergies Allergy/AdvReac Type Severity Reaction Status Date / Time No Known Drug Allergies Allergy Verified 04/22/21 13:43 Past Med/Surg History Medical History Diabetes type 1, controlled Dyslipidemia James's thyroiditis Hypertension Hypothyroidism Social History Smoking Status: Never smoker Hx Alcohol Use: Yes Alcohol Intake Frequency Comment: Social Hx Substance Use: No Preferred Language: Andorran Communication Ability: Effective Exposure Machine Operator Required: No Beliefs That Will Affect Care: None Current Living Situation: Spouse and Family Feels Safe at Home: Yes Assistive Devices: None Review of Systems See HPI for pertinent positives & negatives. and A total of 10 systems reviewed and were otherwise negative Physical Exam Vital Signs Vital Signs - 24 hr 04/22/21 11:04 Temperature 36.7 C Temperature Source Oral Pulse Rate 99 H Pulse Rhythm Regular Pulse Strength Normal Respiratory Rate 20 Respiratory Effort / Characteristics Non-Labored Spontaneous Respiratory Depth Normal Respiratory Pattern Regular Blood Pressure 126/64 Blood Pressure Mean 84 Blood Pressure Position Sitting Pulse Oximetry 98 Oxygen Delivery Method Room Air Vital signs reviewed. General: Somewhat ill-appearing 50-year-old male, no significant distress. HEENT: No scleral icterus, PERRLA, neck supple. Dry mucous membranes Cardiovascular: Mild tachycardia, regular, no extra sounds Pulmonary: Clear to auscultation bilaterally, normal work of breathing. Abdomen: Soft, nontender, nondistended, positive bowel sounds. Musculoskeletal: Atraumatic, no peripheral edema. Neurologic: Patient awake alert and oriented x 3 Skin: Warm, dry, no rash Course Administered Medications Discontinued Medications Aspirin (Aspirin 325 Mg Ectab) 325 mg PO DAILY [facility] Stop: 05/23/21 08:59 Last Admin: 04/23/21 08:06 Dose: 325 mg Documented by: [id number] Atorvastatin Calcium (Atorvastatin 40 Mg Tab) 80 mg PO DAILY [facility] Stop: 05/23/21 08:59 Last Admin: 04/23/21 08:06 Dose: 80 mg Documented by: [id number] Diltiazem HCl (Diltiazem Hcl 240 Mg Capcr) 240 mg PO DAILY [facility] Stop: 05/23/21 08:59 Last Admin: 04/23/21 08:06 Dose: 240 mg Documented by: [id number] Sodium Chloride (Nss 1000ml) 1,000 mls @ 999 mls/hr IV .Q1H1M [facility] Stop: 04/22/21 12:15 Last Infusion: 04/22/21 15:17 Dose: 0 mls/hr Documented by: [id number] Admin: 04/22/21 11:20 Dose: 999 mls/hr Documented by: [id number] Sodium Chloride (Nss 1000ml) 1,000 mls @ 999 mls/hr IV .Q1H1M ONE Stop: 04/22/21 12:16 Last Infusion: 04/22/21 15:17 Dose: 0 mls/hr Documented by: [id number] Admin: 04/22/21 11:42 Dose: 999 mls/hr Documented by: [id number] Insulin Human Regular 250 (units/ Sodium Chloride) 250 mls @ 3.4 mls/hr IV .Q24H [facility]; Protocol Stop: 05/22/21 12:14 Last Titration: 04/23/21 10:04 Dose: 3.4 units/hr, 3.4 mls/hr Documented by: [id number] Cosigned by: [id number] Titration: 04/23/21 09:04 Dose: 2.8 units/hr, 2.8 mls/hr Documented by: [id number] Cosigned by: [id number] Titration: 04/23/21 08:00 Dose: 2.3 units/hr, 2.3 mls/hr Documented by: [id number] Cosigned by: [id number] Titration: 04/23/21 06:46 Dose: 2.3 units/hr, 2.3 mls/hr Documented by: [id number] Cosigned by: [id number] Titration: 04/23/21 05:54 Dose: 2.9 units/hr, 2.9 mls/hr Documented by: [id number] Cosigned by: [id number] Titration: 04/23/21 04:50 Dose: 2.1 units/hr, 2.1 mls/hr Documented by: [id number] Cosigned by: [id number] Titration: 04/23/21 03:40 Dose: 1.5 units/hr, 1.5 mls/hr Documented by: [id number] Cosigned by: [id number] Titration: 04/22/21 23:06 Dose: 0 units/hr, 0 mls/hr Documented by: [id number] Cosigned by: [id number] Titration: 04/22/21 22:32 Dose: 3 units/hr, 3 mls/hr Documented by: [id number] Cosigned by: [id number] Titration: 04/22/21 22:00 Dose: 4.7 units/hr, 4.7 mls/hr Documented by: [id number] Cosigned by: [id number] Titration: 04/22/21 21:00 Dose: 5.9 units/hr, 5.9 mls/hr Documented by: [id number] Cosigned by: [id number] Titration: 04/22/21 20:00 Dose: 7.4 units/hr, 7.4 mls/hr Documented by: [id number] Cosigned by: [id number] Titration: 04/22/21 19:02 Dose: 6.2 units/hr, 6.2 mls/hr Documented by: [id number] Cosigned by: [id number] Titration: 04/22/21 18:13 Dose: 6.2 units/hr, 6.2 mls/hr Documented by: [id number] Cosigned by: [id number] Titration: 04/22/21 17:03 Dose: 5.2 units/hr, 5.2 mls/hr Documented by: [id number] Cosigned by: [id number] Titration: 04/22/21 16:27 Dose: 0 units/hr, 0 mls/hr Documented by: [id number] Cosigned by: [id number] Titration: 04/22/21 15:11 Dose: 8.6 units/hr, 8.6 mls/hr Documented by: [id number] Cosigned by: [id number] Titration: 04/22/21 14:00 Dose: 10.8 units/hr, 10.8 mls/hr Documented by: [id number] Cosigned by: [id number] Admin: 04/22/21 12:42 Dose: 9 units/hr, 9 mls/hr Documented by: [id number] Cosigned by: [id number] Potassium Chloride/Sodium Chloride (1/2 Nss + 20meq Kcl 1000ml) 20 meq in 1,000 mls @ 200 mls/hr IV .Q5H [facility] Stop: 07/05/21 12:44 Last Infusion: 04/22/21 17:51 Dose: 0 mls/hr Documented by: [id number] Infusion: 04/22/21 16:53 Dose: 0 mls/hr Documented by: [id number] Admin: 04/22/21 14:12 Dose: 200 mls/hr Documented by: [id number] Potassium Chloride/Dextrose/Sod Cl (D5w And 1/2nss + 20meq Kcl) 20 meq in 1,000 mls @ 125 mls/hr IV .Q8H [facility] Stop: 05/22/21 16:44 Last Infusion: 04/23/21 08:54 Dose: 0 mls/hr Documented by: [id number] Infusion: 04/22/21 21:03 Dose: 0 mls/hr Documented by: [id number] Infusion: 04/22/21 18:50 Dose: 125 mls/hr Documented by: [id number] Admin: 04/22/21 16:50 Dose: 200 mls/hr Documented by: [id number] Parenteral Electrolytes (Normosol-R) 1,000 mls @ 125 mls/hr IV .Q8H [facility] Stop: 05/22/21 17:33 Last Admin: 04/22/21 17:51 Dose: Not Given Documented by: [id number] Sodium Chloride (Nss 1000ml) 1,000 mls @ 999 mls/hr IV .Q1H1M [facility] Stop: 04/22/21 18:34 Last Admin: 04/22/21 18:12 Dose: Not Given Documented by: [id number] Potassium Chloride 20 meq/ (Sodium Chloride) 1,010 mls @ 80 mls/hr IV .[id number] [facility] Stop: 05/22/21 19:14 Last Admin: 04/23/21 03:35 Dose: 80 mls/hr Documented by: [id number] Infusion: 04/23/21 03:35 Dose: 125 mls/hr Documented by: [id number] Admin: 04/22/21 20:09 Dose: 125 mls/hr Documented by: [id number] Insulin Aspart (Insulin Aspart 100 Units/Ml 3 Ml Pen) 0 units SC ACHS [facility] Stop: 05/22/21 16:29 Last Admin: 04/23/21 08:07 Dose: 6 units Documented by: [id number] Cosigned by: [id number] Admin: 04/22/21 21:16 Dose: Not Given Documented by: [id number] Cosigned by: [id number] Admin: 04/22/21 19:01 Dose: 4 units Documented by: [id number] Cosigned by: [id number] Insulin Aspart (Novolog Insulin Pump) 1 ea N/A ACHS [facility]; Protocol Stop: 05/23/21 00:59 Last Admin: 04/23/21 08:04 Dose: Not Given Documented by: [id number] Insulin Glargine (Insulin Glargine Solostar 100 Units/Ml 3 Ml Pen) 25 units SC ONE ONE; Protocol Stop: 04/23/21 10:01 Last Admin: 04/23/21 10:51 Dose: 25 units Documented by: [id number] Cosigned by: [id number] Insulin Human Regular (Novolin-R Bolus From Bag) 9 units IV ONE ONE Stop: 04/22/21 12:15 Last Admin: 04/22/21 15:12 Dose: Not Given Documented by: [id number] Levothyroxine Sodium (Levothyroxine Sodium 112 Mcg Tablet) [facility] Stop: 05/23/21 06:29 Last Admin: 04/23/21 05:55 Dose: 112 mcg Documented by: [id number] Lisinopril (Lisinopril 5 Mg Tab) 5 mg PO DAILY [facility] Stop: 05/23/21 08:59 Last Admin: 04/23/21 08:07 Dose: 5 mg Documented by: [id number] Miscellaneous (Dka Goal Range 150-250 Mg/Dl) 1 ea N/A ONE ONE Stop: 04/22/21 12:08 Last Admin: 04/22/21 15:17 Dose: Not Given Documented by: [id number] Miscellaneous (Pending 1/2nss+20meq Kcl Ivf) 1 ea N/A Q2H [facility] Stop: 05/22/21 17:33 Last Admin: 04/22/21 17:54 Dose: Not Given Documented by: [id number] Miscellaneous (Pending D5 1/2ns+20meq Kcl Ivf) 1 ea N/A Q2H [facility] Stop: 05/22/21 17:33 Last Admin: 04/22/21 17:53 Dose: Not Given Documented by: [id number] Miscellaneous (Dka Goal Range 150-250 Mg/Dl) 1 ea N/A ONE ONE Stop: 04/22/21 17:35 Last Admin: 04/22/21 17:54 Dose: Not Given Documented by: [id number] Miscellaneous Information (Dc All Previously Ordered Diabetes Meds) 1 ea N/A ONE ONE Stop: 04/22/21 17:35 Last Admin: 04/22/21 17:59 Dose: 1 ea Documented by: [id number] Ondansetron HCl (Ondansetron Inj 2 Mg/Ml 2 Ml Vial) Confirm Administered Dose 4 mg .ROUTE .STK-MED ONE Stop: 04/22/21 11:08 Last Admin: 04/22/21 11:19 Dose: 4 mg Documented by: [id number] Ondansetron HCl (Ondansetron Inj 2 Mg/Ml 2 Ml Vial) 4 mg IV NOW STA Stop: 04/22/21 11:12 Last Admin: 04/22/21 11:20 Dose: Not Given Documented by: [id number] Vitamin D (Cholecalciferol 1,000 Units 25 Mcg Tab) 2,000 units PO DAILY [facility] Stop: 05/23/21 08:59 Last Admin: 04/23/21 08:06 Dose: 2,000 units Documented by: [id number] Medical Decision Making Differential Diagnosis Pump malfunction, DKA, hyperglycemia, dehydration, infectious etiology, medication error, metabolic derangement, electrolyte derangement, viral illness Medical Records Attestation: I reviewed the patient's medical records. Home Medications Current Medication List: was personally reviewed by me Laboratory Data Attestation: I reviewed the patient's lab results. Result diagrams: 04/22/21 11:05 04/23/21 05:56 Lab Results 04/22/21 04/22/21 04/22/21 Range/Units 11:05 11:05 11:32 WBC 16.79 H (4.8-10.8) K/uL RBC 4.87 (4.7-6.1) M/uL Hgb 15.3 (14.0-18.0) g/dL Hct 45.4 (42-52) % MCV 93.2 (80-100) fL MCH 31.4 (25-34) pg MCHC 33.7 (32-36) g/dL RDW Std Deviation 45.0 (36.4-46.3) fL RDW Coeff of Ninoska 13.0 (11.5-14.5) % Plt Count 305 (130-400) K/uL MPV 10.0 (7.4-10.4) fL Immature Gran % (Auto) 0.2 % Neut % (Auto) 87.8 % Lymph % (Auto) 8.2 % Price % (Auto) 3.6 % Eos % (Auto) 0.0 % Baso % (Auto) 0.2 % Neut # (Auto) 14.73 H (1.4-6.5) K/uL Lymph # (Auto) 1.38 (1.2-3.4) K/uL Price # (Auto) 0.61 H (0.11-0.59) K/uL Eos # (Auto) 0.00 (0-0.5) K/uL Baso # (Auto) 0.03 (0-0.2) K/uL Immature Gran # (Auto) 0.04 H (0.00-0.02) K/uL VBG pH 7.25 L (7.36-7.41) VBG pCO2 39 (38-50) mmHg VBG pO2 48 mmHg VBG HCO3 17 mmol/L VBG O2 Saturation 80.4 % VBG Base Excess -9.9 mEq/L Barometric Pressure 732.8 mm/Hg Sodium 134 L (136-145) mmol/L Potassium 4.3 (3.5-5.1) mmol/L Chloride 97 L (98-107) mmol/L Carbon Dioxide 19 L (21-32) mmol/L Anion Gap 18.0 H (3-11) BUN 31 H (7-18) mg/dl Creatinine 1.48 H (0.6-1.4) mg/dl Est Cr Clr Drug Dosing 65.5 ml/min Est GFR ( Amer) 63.0 ml/min Est GFR (Non-Af Amer) 54.4 ml/min BUN/Creatinine Ratio 20.6 H (10-20) Glucose 528 H* (70-99) mg/dl POC Glucose (70-99) mg/dl Lactate (0.4-2.0) mmol/L Calcium 9.3 (8.5-10.1) mg/dl Magnesium 2.3 (1.8-2.4) mg/dl Total Bilirubin 1.2 H (0.2-1) mg/dl AST 26 (15-37) U/L ALT 37 (12-78) U/L Alkaline Phosphatase 125 H (45-117) U/L Total Protein 7.5 (6.4-8.2) gm/dl Albumin 4.3 (3.4-5.0) gm/dl Globulin 3.2 (2.5-4.0) gm/dl Albumin/Globulin Ratio 1.4 (0.9-2) Beta-Hydroxybutyric Acd (0.2-2.81) mg/dl TSH 0.654 (0.300-4.500) uIu/ml Urine Color Urine Appearance (Clear) Urine pH (4.5-7.5) Ur Specific [place] (1.000-1.030) Urine Protein (Negative) Urine Glucose (UA) (Negative) Urine Ketones (Negative) Urine Blood (Negative) Urine Nitrite (Negative) Urine Bilirubin (Negative) Urine Urobilinogen (Negative) Ur Leukocyte Esterase (Negative) COVID-19 Eval Order SARS-CoV-2 (PCR) (Negative) 04/22/21 04/22/21 04/22/21 Range/Units 11:50 12:14 12:14 WBC (4.8-10.8) K/uL RBC (4.7-6.1) M/uL Hgb (14.0-18.0) g/dL Hct (42-52) % MCV (80-100) fL MCH (25-34) pg MCHC (32-36) g/dL RDW Std Deviation (36.4-46.3) fL RDW Coeff of Ninoska (11.5-14.5) % Plt Count (130-400) K/uL MPV (7.4-10.4) fL Immature Gran % (Auto) % Neut % (Auto) % Lymph % (Auto) % Price % (Auto) % Eos % (Auto) % Baso % (Auto) % Neut # (Auto) (1.4-6.5) K/uL Lymph # (Auto) (1.2-3.4) K/uL Price # (Auto) (0.11-0.59) K/uL Eos # (Auto) (0-0.5) K/uL Baso # (Auto) (0-0.2) K/uL Immature Gran # (Auto) (0.00-0.02) K/uL VBG pH (7.36-7.41) VBG pCO2 (38-50) mmHg VBG pO2 mmHg VBG HCO3 mmol/L VBG O2 Saturation % VBG Base Excess mEq/L Barometric Pressure mm/Hg Sodium (136-145) mmol/L Potassium (3.5-5.1) mmol/L Chloride (98-107) mmol/L Carbon Dioxide (21-32) mmol/L Anion Gap (3-11) BUN (7-18) mg/dl Creatinine (0.6-1.4) mg/dl Est Cr Clr Drug Dosing ml/min Est GFR ( Amer) ml/min Est GFR (Non-Af Amer) ml/min BUN/Creatinine Ratio (10-20) Glucose (70-99) mg/dl POC Glucose (70-99) mg/dl Lactate (0.4-2.0) mmol/L Calcium (8.5-10.1) mg/dl Magnesium (1.8-2.4) mg/dl Total Bilirubin (0.2-1) mg/dl AST (15-37) U/L ALT (12-78) U/L Alkaline Phosphatase (45-117) U/L Total Protein (6.4-8.2) gm/dl Albumin (3.4-5.0) gm/dl Globulin (2.5-4.0) gm/dl Albumin/Globulin Ratio (0.9-2) Beta-Hydroxybutyric Acd (0.2-2.81) mg/dl TSH (0.300-4.500) uIu/ml Urine Color Yellow Urine Appearance Clear (Clear) Urine pH 5.0 (4.5-7.5) Ur Specific [place] 1.029 (1.000-1.030) Urine Protein Negative (Negative) Urine Glucose (UA) 3+ H (Negative) Urine Ketones 3+ H (Negative) Urine Blood Negative (Negative) Urine Nitrite Negative (Negative) Urine Bilirubin Negative (Negative) Urine Urobilinogen Negative (Negative) Ur Leukocyte Esterase Negative (Negative) COVID-19 Eval Order Covid19 at [facility] SARS-CoV-2 (PCR) NEGATIVE (Negative) 04/22/21 04/22/21 Range/Units 12:30 12:33 WBC (4.8-10.8) K/uL RBC (4.7-6.1) M/uL Hgb (14.0-18.0) g/dL Hct (42-52) % MCV (80-100) fL MCH (25-34) pg MCHC (32-36) g/dL RDW Std Deviation (36.4-46.3) fL RDW Coeff of [place] (11.5-14.5) % Plt Count (130-400) K/uL MPV (7.4-10.4) fL Immature Gran % (Auto) % Neut % (Auto) % Lymph % (Auto) % Price % (Auto) % Eos % (Auto) % Baso % (Auto) % Neut # (Auto) (1.4-6.5) K/uL Lymph # (Auto) (1.2-3.4) K/uL Price # (Auto) (0.11-0.59) K/uL Eos # (Auto) (0-0.5) K/uL Baso # (Auto) (0-0.2) K/uL Immature Gran # (Auto) (0.00-0.02) K/uL VBG pH (7.36-7.41) VBG pCO2 (38-50) mmHg VBG pO2 mmHg VBG HCO3 mmol/L VBG O2 Saturation % VBG Base Excess mEq/L Barometric Pressure mm/Hg Sodium (136-145) mmol/L Potassium (3.5-5.1) mmol/L Chloride (98-107) mmol/L Carbon Dioxide (21-32) mmol/L Anion Gap (3-11) BUN (7-18) mg/dl Creatinine (0.6-1.4) mg/dl Est Cr Clr Drug Dosing ml/min Est GFR ( Amer) ml/min Est GFR (Non-Af Amer) ml/min BUN/Creatinine Ratio (10-20) Glucose (70-99) mg/dl POC Glucose 451 H* (70-99) mg/dl Lactate 2.5 H* (0.4-2.0) mmol/L Calcium (8.5-10.1) mg/dl Magnesium (1.8-2.4) mg/dl Total Bilirubin (0.2-1) mg/dl AST (15-37) U/L ALT (12-78) U/L Alkaline Phosphatase (45-117) U/L Total Protein (6.4-8.2) gm/dl Albumin (3.4-5.0) gm/dl Globulin (2.5-4.0) gm/dl Albumin/Globulin Ratio (0.9-2) Beta-Hydroxybutyric Acd (0.2-2.81) mg/dl TSH (0.300-4.500) uIu/ml Urine Color Urine Appearance (Clear) Urine pH (4.5-7.5) Ur Specific [place] (1.000-1.030) Urine Protein (Negative) Urine Glucose (UA) (Negative) Urine Ketones (Negative) Urine Blood (Negative) Urine Nitrite (Negative) Urine Bilirubin (Negative) Urine Urobilinogen (Negative) Ur Leukocyte Esterase (Negative) COVID-19 Eval Order SARS-CoV-2 (PCR) (Negative) ECG Data Attestation: I personally reviewed and interpreted this ECG as follows: Indication: + weakness Rate (beats per minute): 95 Rhythm: + normal sinus ECG Intervals/blocks: + Normal QT-c (464) ECG [place]: + Normal ECG Findings: no PACs and no PVCs Blood Pressure Blood Pressure Findings: Normal blood pressure Blood Pressure Disposition: did not require urgent referral MDM Narrative This patient was evaluated and appeared to be in no significant distress. IV access was obtained and laboratory work was drawn. An order for cardiac monitoring was placed and the patient is noted to be in a sinus rhythm at 88 bpm. EKG was performed and reveals no evidence of acute ischemia or dysrhythmia. Patient declined chest x-ray. Patient's laboratory work reveals a blood glucose of 528. Patient had bolused himself through his insulin pump, he was asked to take it off. Repeat glucose was obtained 428. Given the patient's VBG and a low bicarb/pH I did speak with the clinical pharmacist. It was recommended that the patient be started on an insulin drip so that his metabolic derangements could be corrected. The patient did receive 2 L of IV normal saline solution and then maintenance fluids D5 one half normal saline solution with 20 MEq of potassium were hung at 200 mL/h. The hospital service was consulted for further management. Patient was made aware of the findings and plan and agreed. Impression & Plan DKA, type 1 Discharge Plan Visit Data Chief Complaint: Hyperglycemia ED Provider: Leandra Hernandez Discharge Problem: DKA, type 1 Patient Disposition: Admitted As Inpatient Discharge Instructions Interventions: ED Discharge Assessment Last Done: 04/22/21 16:56 Discharge Problem: DKA, type 1 Qualifiers: Diabetes mellitus complication detail: without coma Qualified Code(s): E10.10 - Type 1 diabetes mellitus with ketoacidosis without coma
[2021-04-24 07:24] LABS: Estimated Average Glucose 189 mg/dl; Hemoglobin A1C 8.2 % (4.5-5.6)
== END 2021-04-23 11:10 | disposition home or self-care (01) | DRG 919 ==
LOC: ED 11:03 → 2E 12:44

== ENCOUNTER 2024-02-17 13:31 | Observation (INO) ==
[2024-02-17] MEDS: SODIUM CHLORIDE 0.9% 500 ML IV ONE (13:49)
[2024-02-17 14:28] LABS: Partial Thromboplastin Ratio 0.9; Partial Thromboplastin Time 26 Seconds (21-31); Prothrombin Time 10.6 Seconds (9.0-12.0)
[2024-02-17 14:31] LABS: Basophils # (auto) 0.08 K/uL (0.00-0.20); Basophils % (auto) 0.9 %; Eosinophils # (auto) 0.14 K/uL (0.00-0.50); Eosinophils % (auto) 1.6 %; Hematocrit (blood only) 45.4 % (42.0-52.0); Hemoglobin 15.5 g/dl (14.0-18.0); Immature Granulocytes # (auto) 0.02 K/uL (0.01-0.20); Immature Granulocytes % (auto) 0.2 %; Lymphocytes # (auto) 3.67 K/uL (1.20-3.40); Lymphocytes % (auto) 41.1 %; Mean Corpuscular Hemoglobin 29.9 pg (25.0-34.0); Mean Corpuscular Hgb Conc 34.1 g/dL (32.0-36.0); Mean Corpuscular Volume 87.6 fL (80.0-100.0); Mean Platelet Volume 9.7 fL (9.4-12.4); Monocytes # (auto) 0.78 K/uL (0.11-0.59); Monocytes % (auto) 8.7 %; Neutrophils # (auto) 4.25 K/uL (1.40-6.50); Neutrophils % (auto) 47.5 %; Platelet Count 259 K/uL (130-400); RDW Coefficient of Variation 12.7 % (11.5-14.5); RDW Standard Deviation 40.7 fL (36.4-46.3); Red Blood Count 5.18 M/uL (4.70-6.10); White Blood Count 8.94 K/ul (4.8-10.8)
--- NOTE | 2024-02-17 14:41 | XRay Report ---
XR chest 2V PA/lateral CLINICAL HISTORY: Chest pain, nonspecific COMPARISON STUDY: Chest radiograph and chest CT October 19, 2017. FINDINGS: Lung volumes are normal. There is no consolidation to suggest pneumonia. 9 mm nodular densi ty within the right midlung is noted. There is no pneumothorax or pleural effusion. Cardiac size is n ormal. Mediastinal contours are normal. There is no evidence for pulmonary edema. IMPRESSION: 1. No acute cardiopulmonary findings. 2. 9 mm nodular density within the right midlung. This may be due to summation artifact. However, a n onemergent chest CT is recommended to exclude a pulmonary nodule. ACT 112: Positive. There are findings on this exam that require communication between the performing entity and the patient following Patient Test Result Information Act ([place] Act 112) guidelines. Electronically signed by: Delio Burger M.D. 02/17/2024 2:39 PM
[2024-02-17 14:57] LABS: Adenovirus PCR Not Detected (NotDetected); Bordetella parapertussis PCR Not Detected (NotDetected); Bordetella pertussis PCR Not Detected (NotDetected); Chlamydia pneumoniae PCR Not Detected (NotDetected); Coronavirus 229E PCR Not Detected (NotDetected); Coronavirus CoV-2 (COVID19)PCR Not Detected (NotDetected); Coronavirus HKU1 PCR Not Detected (NotDetected); Coronavirus NL63 PCR Not Detected (NotDetected); Coronavirus OC43PCR Not Detected (NotDetected); Human Metapneumovirus PCR Not Detected (NotDetected); Influenza A PCR Not Detected (NotDetected); Influenza B PCR Not Detected (NotDetected); Mycoplasma pneumoniae PCR Not Detected (NotDetected); Parainfluenza Virus 1 PCR Not Detected (NotDetected); Parainfluenza Virus 2 PCR Not Detected (NotDetected); Parainfluenza Virus 3 PCR Not Detected (NotDetected); Parainfluenza Virus 4 PCR Not Detected (NotDetected); Respiratory Syncytial VirusPCR Not Detected (NotDetected); Rhinovirus/Enterovirus PCR DETECTED (NotDetected)
[2024-02-17 14:58] LABS: Anion Gap 9 (3-11); BUN Creatinine Ratio 16.2 (10-20); Blood Urea Nitrogen 18 mg/dl (6-23); Calcium 9.7 mg/dl (8.6-10.3); Carbon Dioxide 28 mmol/L (21-32); Chloride 102 mmol/L (98-107); Creatinine Clr Calc Pharmacy 95.9 ml/min; Est GFR (African American) 87.4 ml/min; Est GFR (Non-African American) 75.4 ml/min; Glucose 195 mg/dl (70-99(Fasting)); Lipase 38 U/L (11-82); Sodium 139 mmol/L (136-145); Troponin I High Sensitivity 14.6 pg/ml (0-20)
[2024-02-17 15:02] LABS: D Dimer 700 ug/L FEU (0-500)
[2024-02-17] MEDS: OPTIRAY 320 125ml IV ONE (15:27)
[2024-02-17 16:05] LABS: Potassium 3.5 mmol/L (3.5-5.1)
[2024-02-17 16:14] LABS: Troponin I High Sensitivity 13.1 pg/ml (0-20)
--- NOTE | 2024-02-17 17:05 | CT Scan Report ---
CT ANGIOGRAPHY OF THE CHEST, PULMONARY EMBOLUS PROTOCOL CLINICAL HISTORY: Intermittent chest pain and diaphoresis. COMPARISON STUDY: Chest CT October 19, 2017. Chest radiograph performed earlier today. TECHNIQUE: Following IV administration of 119 mL of Optiray, helical axial images of the chest were o btained utilizing the pulmonary embolus protocol. Maximal intensity projections and sagittal and cor onal reformats were viewed on an independent 3D workstation. IV contrast was administered without co mplication. Automated exposure control was utilized for the study. A dose lowering technique was ut ilized adhering to the principles of ALARA. CT DOSE: 820.5 mGy.cm FINDINGS: No pulmonary emboli are identified. There is no thoracic aortic dissection. The size of th e heart is normal. A prominent subcarinal lymph node measures 1.4 x 1 cm. There are several mildly en larged right hilar lymph nodes. Index node on image 88 measures 1.5 x 1.3 cm. There are a few promine nt left hilar lymph nodes. No pneumothorax or pleural effusion is present. Several nodular opacities with mild associated groundglass opacity are present, including a 1 cm focus within the anterior segm ent of the right upper lobe on image 104 of 219. This corresponds to the pulmonary nodule on chest CT from earlier today. Nodules are greater number within the right lung. 1.1 cm ill-defined opacity wit hin the lingula is also likely infectious. No cavitation is present. There is no associated pleural e ffusion. Bony thorax and visualized portions of the upper abdomen are unremarkable. IMPRESSION: 1. No pulmonary emboli identified. 2. Several small nodular opacities with mild adjacent groundglass opacity, including a 1 cm focus wit hin the right upper lobe which accounts for the pulmonary nodule on chest radiograph. These are nonsp ecific but favor an infectious etiology, possibly atypical. No confluent consolidation. No cavitation . A chest CT in 2 months to ensure resolution is recommended. 2. Mildly enlarged bilateral hilar lymph nodes. These are likely reactive but should be assessed on f ollow-up chest CT to ensure resolution. ACT 112: Negative or not required by law. Electronically signed by: Delio Burger M.D. 02/17/2024 5:04 PM
--- NOTE | 2024-02-17 17:06 | History & Physical Report ---
Date of Service February 17, 2024 Assessment & Plan (1) Upper respiratory infection, viral: Plan: Chest pain, shortness of breath CT: Several small nodular opacities with mild adjacent groundglass opacity, including a 1 cm focus within the right upper lobe which accounts for the pulmonary nodule on chest radiograph. These are nonspecific but favor an infectious etiology, possibly atypical. No confluent consolidation. No cavitation. A chest CT in 2 months to ensure resolution is recommended. - Pulmonology consulted, anticipate bronchoscopy in the a.m. WIll also need repeat serial CT in 6-8 weeks. No leukocytosis is present Recent travel to [facility] where Ch[place], leishmaniasis, hantavirus, Dengue are endemic. Patient has not had rash. No headache. Does have right shoulder pain. No leukopenia. No temporal/ocular pain. Low suspicion for dengue, is outside of the 2-week incubation. No fever or localized infection/swelling to suggest Chagas. - Rhino/adeno virus positive Fungitell, histoplasma, coccidiomycosis, and Aspergillus testing pending (2) Abnormal CT scan, chest: Plan: Pulmonary nodules as noted Pulmonary following, bronch 4/2 N.p.o. at midnight (3) Hypothyroidism: Plan: James thyroiditis Continue Synthroid daily (4) Diabetes type 1, controlled: Plan: Type 1 diabetes mellitus well-controlled as outpatient Uses insulin pump, prefers to keep pump on with self-manage control. Will continue in place on every 4 hour checks while NPO. -N.p.o. at midnight, D5 LR while n.p.o. (5) Hypertension: Plan: Hypertension Continue diltiazem, chlorthalidonelisinopril held, resume post bron. BP mildly elevated in ER (6) Chest pain: Plan: Multiple intermittent episodes of chest pain, and the seem to be sporadic, not extra associated but has been associated with shortness of breath and diaphoresis With infectious evaluation as noted above Multiple risk factors including hypertension, family history of OH in first- degree relatives in 40s, DM 1 High sensitive troponin x 2 are normal no acute ischemic findings on EKG, concerned regarding potential underlying cardiac disease Discussed at signout, patient has followed with Dr. Toscano in the past. Case will be reviewed and evaluated for stress test in the a.m. Patient does exercise regularly, notes that with diltiazem increased to 300 mg daily does tend to be exercise/heart rate At around 150. Has not had chest pain during this exercise. Plan DVT prophylaxis: SCDs, Lovenox Diet: Type I DM, n.p.o. midnight Disposition: Medical telemetry due to chest pain CODE STATUS: Full code History of Present Illness Primary Care Provider: DO Dr. Mariah Meléndez is a 55-year-old male with a past medical history of NAEEM, controlled type I DM, hypothyroidism, hyperlipidemia who presents to the ER with intermittent chest pain and dyspnea. High sensitivity troponin was normal, EKG was sinus tachycardia without acute ischemic findings. He is entero-/rhinovirus positive. Chest x-ray shows no acute findings; 9 mm nodule density was noted. D-dimer was elevated with recent travel, follow-up CTA shows no evidence of PE however atypical pulmonary nodules with concern for infectious appearance were noted. Case was reviewed with pulmonology, and is recommended for bronchoscopy following morning. Seen at the bedside. Reports Saturday evening started feeling off with Right shoulder pain. Worried about cardiac risk factors. Initial pain was reproducible to palpation. Intermittent symptoms wihch improved with tylenol and ibuprofen but then recurred in 6 to 8 hour cycles. Associated with leg achieness, some chest discomfort. No shortness of breath, no cough. Prompted to come in as one episode with diaphoresis. BSG was normal. 2-3 episodes Beliz 3.5 weeks ago. [place]ent 2 nights in the jungle and sailed for 3 days with snorkeling. No aspiration. Also recently with travel to [place] Few bug biets no rashes. Not on any prophylaxis No temperature, just felt clammy. Endorses right shoulder pain general feeling of unwellness No pulmonary history. No cough. No sputum production Has seen Dr. Toscano in the past, highly concerned about cardiac risk given multiple comorbidities. Prefers to follow-up with [facility] cardiology if possible. Diltiazem 240 up to 300 with some exercise intolerance, notes to be heart rate A round 150. Had Not Been Having Any Chest Pain with Exercise and Regular Cycling Takes full dose aspirin daily, prefers full dose due to multiple risk factors and strong family history of cardiac disease. Would like to establish with cardiology to see regularly. Diabetes well-controlled on insulin pump, prefers to continue insulin pump on admission Medical History: Reviewed Medications: Reviewed Surgical History: Reviewed Family history: Reviewed Allergies: Reviewed Social History: Reviewed Code Status: Full Allergies Allergy/AdvReac Type Severity Reaction Status Date / Time No Known Drug Allergies Allergy Verified 03/04/23 12:24 Home Medications Medication Instructions Recorded Confirmed Type aspirin 325 mg tablet 325 mg PO DAILY 08/28/19 03/04/23 History insulin U-500 syringe-needle 1/2 #100 ea 08/28/19 03/04/23 History mL 31 gauge x 15/64" (BD Insulin Syringe U-500) cholecalciferol (vitamin D3) 50 2,000 unit PO DAILY #30 caps 03/20/21 03/04/23 Rx mcg (2,000 unit) capsule insulin glargine 100 unit/mL (3 25 unit (0.25 mL) subcut BID #6 mL 04/23/21 01/03/22 Rx mL) subcutaneous pen (Basaglar KwikPen U-100 Insulin) insulin glargine 100 unit/mL (3 25 unit (0.25 mL) subcut BID #6 mL 04/23/21 01/03/22 Rx mL) subcutaneous pen (Basaglar KwikPen U-100 Insulin) Accu-Chek Fastclix Lancet Drum #300 ea 12/05/22 03/04/23 Rx (lancets) Accu-Chek Guide test strips (blood #300 ea 12/05/22 03/04/23 Rx sugar diagnostic) chlorthalidone 25 mg tablet 25 mg PO DAILY #90 tabs 04/20/23 Rx lisinopril 40 mg tablet 40 mg PO DAILY #90 tabs 04/20/23 Rx diltiazem HCl 240 mg 240 mg PO DAILY #90 caps 06/11/23 Rx capsule,extended release 24 hr Novolog U-100 Insulin aspart 100 100 unit continuous subcutaneous 11/19/23 Rx unit/mL subcutaneous solution infusion DAILY 90 days #90 mL (insulin aspart U-100) blood-glucose sensor (Dexcom G6 #9 ea 11/19/23 Rx Sensor device) blood-glucose transmitter (Dexcom #1 ea 11/19/23 Rx G6 Transmitter device) levothyroxine 112 mcg tablet 112 mcg PO DAILY #90 tabs 11/19/23 Rx atorvastatin 80 mg tablet 80 mg PO DAILY #90 tabs 11/21/23 Rx Past Med/Surg History Medical History (Updated 02/17/24 @ 17:45 by Pj Underwood MD) Upper respiratory infection, viral Abnormal CT scan, chest Social History Smoking Status: Never smoker Hx Alcohol Use: Yes Alcohol Intake Frequency Comment: Social Hx Substance Use: No Preferred Language: Scottish Communication Ability: Effective 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 NAD. Cooperative. HEENT: Atraumatic, normocephalic. Vision and hearing grossly intact Pulm: CTAB A&P. -wheezes, -rales, -rhonchi. Symmetrical chest rise. No increased work of breathing. No respiratory distress. Cardiac: RRR, -mrg. Radial pulses intact and symmetrical. Extremities: Skin warm and dry Results & Data Results & Data Vital Signs (Past 12 Hours) Vital Signs Temp Pulse Pulse Resp BP BP Pulse Ox 02/17/24 16:00 89 20 160/99 H 98 02/17/24 14:37 95 H 13 156/88 H 96 02/17/24 14:23 103 H 02/17/24 13:32 112 H 16 97 02/17/24 13:32 36.8 C 112 H 16 177/119 H 97 O2 Del Method 02/17/24 16:00 Room Air 02/17/24 14:37 02/17/24 14:23 02/17/24 13:32 Room Air 02/17/24 13:32 Room Air PG Care Time/CCT Total # of Minutes Spent Total Time Spent with Patient: Total time spent is greater than 50% in coordination of care (as documented) at patient's floor/unit and/or counseling patient: Coding Level of Care Code 08221 INT INP/OBS CARE 2/55MIN Diagnoses Upper respiratory infection, viral J06.[address] scan, chest R93.89 Hypothyroidism E03.9 Diabetes type 1, controlled E10.9 Hypertension I10 Chest pain R07.9
--- NOTE | 2024-02-17 17:11 | Pulmonary Consultation ---
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 Chest CT revealed small inflammatory looking nodules pr edominantly in the right side along with associated hilar adenopathy. Etiology of inflammatory nodules is unclear, but may certainly be related to patient's acute viral illness. Other possibilities include atypical infection such as fungal infections and other atypical bacterial infections. Will send for urine histoplasma antigen, Aspergillus galactomannan antigen, Fungitell and coccidiomycosis antibodies. Other possibilities include inflammatory condition such as sarcoidosis and less likely malignancy. Will proceed with bronchoscopy tomorrow morning with possible EBUS to evaluate the hilar mediastinal lymph nodes. Patient consents. Recommend initiating broad-spectrum antibiotics. Discussed with the ER physician. 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 He denies any prior history of pulmonary disease. Patient relates that he was recently on a trip to [facility] and then quite a bit of snorkeling and hiking in the jungle. He is very active typically and has traveled all around the country and world. He denies any recent fevers, chills or night sweats. He does have a history of James's thyroiditis, optic neuritis, atrial tachycardia type 1 diabetes mellitus and cardiac disease in his family. He was concerned of a possible acute cardiac illness. He had a respiratory viral panel pleated in the ER which revealed positivity for entero-/rhinovirus. He denies any fevers, chills, night sweats, cough or weight loss. He also had a positive D-dimer. Chest CTA was completed which revealed several small nodular opacities with mild adjacent groundglass opacities including 1 cm focus within the right upper lobe favoring infectious/inflammatory etiology. Mildly enlarged bilateral hilar nodes were noted as well. Denies any history of drug abuse, vaping, e-cigarettes or smoking. Allergies Allergy/AdvReac Type Severity Reaction Status Date / Time No Known Drug Allergies Allergy Verified 03/04/23 12:24 Home Medications Medication Instructions Recorded Confirmed Type aspirin 325 mg tablet 325 mg PO DAILY 08/28/19 03/04/23 History insulin U-500 syringe-needle / #100 ea 08/28/19 03/04/23 History mL 31 gauge x 15/64" (BD Insulin Syringe U-500) cholecalciferol (vitamin D3) 50 2,000 unit PO DAILY #30 caps 03/20/21 03/04/23 Rx mcg (2,000 unit) capsule insulin glargine 100 unit/mL (3 25 unit (0.25 mL) subcut BID #6 mL 04/23/21 01/03/22 Rx mL) subcutaneous pen (Basaglar KwikPen U-100 Insulin) insulin glargine 100 unit/mL (3 25 unit (0.25 mL) subcut BID #6 mL 04/23/21 01/03/22 Rx mL) subcutaneous pen (Basaglar KwikPen U-100 Insulin) Accu-Chek Fastclix Lancet Drum #300 ea 12/05/22 03/04/23 Rx (lancets) Accu-Chek Guide test strips (blood #300 ea 12/05/22 03/04/23 Rx sugar diagnostic) chlorthalidone 25 mg tablet 25 mg PO DAILY #90 tabs 04/20/23 Rx lisinopril 40 mg tablet 40 mg PO DAILY #90 tabs 04/20/23 Rx diltiazem HCl 240 mg 240 mg PO DAILY #90 caps 06/11/23 Rx capsule,extended release 24 hr Novolog U-100 Insulin aspart 100 100 unit continuous subcutaneous 11/19/23 Rx unit/mL subcutaneous solution infusion DAILY 90 days #90 mL (insulin aspart U-100) blood-glucose sensor (Dexcom G6 #9 ea 11/19/23 Rx Sensor device) blood-glucose transmitter (Dexcom #1 ea 11/19/23 Rx G6 Transmitter device) levothyroxine 112 mcg tablet 112 mcg PO DAILY #90 tabs 11/19/23 Rx atorvastatin 80 mg tablet 80 mg PO DAILY #90 tabs 11/21/23 Rx Patient History Medical History (Updated 02/17/24 @ 17:24 by Juan Carlos Griffin MD) Upper respiratory infection, viral Abnormal CT scan, chest Social History Smoking Status: Never smoker Hx Alcohol Use: Yes Alcohol Intake Frequency Comment: Social Hx Substance Use: No Preferred Language: Urdu Communication Ability: Effective 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 Patient is in no apparent distress. Patient is well-developed. Eyes: Pupils are equal round and reactive to light. Conjunctivae are normal. Anicteric sclera. Ears nose, mouth and throat: Mallampati class 1. Normal posterior oropharynx. Uvula is midline. Neck: Trachea is midline. Visual inspection is normal. Respiratory: Clear to auscultation bilaterally. No use of accessory muscles. No significant clubbing noted. Cardiovascular: Regular rate and rhythm. No murmurs. No edema. Gastrointestinal: Normal bowel sounds, soft, nontender and nondistended. No hepatosplenomegaly noted. Musculoskeletal: No cyanosis. Patient is able to move all extremities. Strength is 5 out of 5 in the upper and lower extremities. Skin: No rashes, warm dry and intact. Neurologic: No obvious focal neurological deficits seen. Psychiatric: Alert and oriented x3 with a euthymic affect. Results & Data Results & Data Vital Signs (Past 12 Hours) Vital Signs Temp Pulse Pulse Resp BP BP Pulse Ox 02/17/24 16:00 89 20 160/99 H 98 02/17/24 14:37 95 H 13 156/88 H 96 02/17/24 14:23 103 H 02/17/24 13:32 112 H 16 97 02/17/24 13:32 36.8 C 112 H 16 177/119 H 97 O2 Del Method 02/17/24 16:00 Room Air 02/17/24 14:37 02/17/24 14:23 02/17/24 13:32 Room Air 02/17/24 13:32 Room Air PG Care Time/CCT Total # of Minutes Spent Total Time Spent with Patient: Total time spent is greater than 50% in coordination of care (as documented) at patient's floor/unit and/or counseling patient: Coding Level of Care Code 89090 IN/OBS CONSULT LVL 4,60M Diagnoses Abnormal CT scan, chest R93.89 Upper respiratory infection, viral J06.9
[2024-02-17] MEDS ORDERED: GLUCOSE 10 TAB/TUBE PO PRN (17:50)
[2024-02-17] MEDS ORDERED: GLUCAGON FOR INJ 1 MG VIAL SQ PRN (17:50)
[2024-02-17] MEDS ORDERED: CARBOHYDRATES FOR HYPOGLYCEMIA PO PRN (17:50)
[2024-02-17] MEDS ORDERED: DEXTROSE 50% 50 ML SYRINGE IV PRN (17:50)
[2024-02-17] MEDS ORDERED: GLUCOSE 40% GEL 15 GM TUBE PO PRN (17:50)
--- NOTE | 2024-02-17 18:22 | Emergency Department Note ---
History of Present Illness General Chief Complaint: Chest Pain Stated Complaint: CHEST PAIN Time Seen by Provider: 02/17/24 13:32 History of Present Illness Provider Complaint: chest pain Onset (ago): day(s) 5 Duration: intermittent Onset: during rest Pain Location: substernal and left chest Pain Radiation: LUE Severity: moderate Current Pain Intensity: 0 Quality: + aching and + dull Relieved By: + nothing Exacerbated By: + nothing Context: + recent travel; no recent illness, no recent surgery, no recent immobilization, no trauma/injury or no history of DVT/PE Associated symptoms: + diaphoresis and + other (Patient reports myalgias.); no nausea, no vomiting, no dyspnea, no syncope, no palpitations, no fever, no cough or no leg swelling Treatments prior to arrival: aspirin Recent tick exposure. Home Medications Medication Instructions Recorded Confirmed Type aspirin 325 mg tablet 325 mg PO DAILY 08/28/19 02/17/24 History insulin U-500 syringe-needle 1/2 #100 ea 08/28/19 03/04/23 History mL 31 gauge x 15/64" (BD Insulin Syringe U-500) cholecalciferol (vitamin D3) 50 2,000 unit PO DAILY #30 caps 03/20/21 02/17/24 Rx mcg (2,000 unit) capsule Accu-Chek Fastclix Lancet Drum #300 ea 12/05/22 03/04/23 Rx (lancets) Accu-Chek Guide test strips (blood #300 ea 12/05/22 03/04/23 Rx sugar diagnostic) chlorthalidone 25 mg tablet 25 mg PO DAILY #90 tabs 04/20/23 02/17/24 Rx lisinopril 40 mg tablet 40 mg PO DAILY #90 tabs 04/20/23 02/17/24 Rx Novolog U-100 Insulin aspart 100 100 unit continuous subcutaneous 11/19/23 02/17/24 Rx unit/mL subcutaneous solution infusion DAILY 90 days #90 mL (insulin aspart U-100) blood-glucose sensor (Dexcom G6 #9 ea 11/19/23 Rx Sensor device) blood-glucose transmitter (Dexcom #1 ea 11/19/23 Rx G6 Transmitter device) levothyroxine 112 mcg tablet 112 mcg PO DAILY #90 tabs 11/19/23 02/17/24 Rx atorvastatin 80 mg tablet 80 mg PO DAILY #90 tabs 11/21/23 02/17/24 Rx diltiazem HCl 240 mg 360 mg PO DAILY 02/17/24 02/17/24 History capsule,extended release 24 hr Allergies Allergy/AdvReac Type Severity Reaction Status Date / Time No Known Drug Allergies Allergy Verified 03/04/23 12:24 Past Med/Surg History Medical History Diabetes type 1, controlled Dyslipidemia Hypertension Hypothyroidism Upper respiratory infection, viral Abnormal CT scan, chest Surgical History No pertinent past surgical history Family History Father Heart disease Social History Smoking Status: Never smoker Hx Alcohol Use: Yes Alcohol Intake Frequency Comment: Social Hx Substance Use: No Preferred Language: Scottish Communication Ability: Effective 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 Beliefs That Will Affect Care: None Current Living Situation: Spouse and Family Feels Safe at Home: Yes Assistive Devices: None Physical Exam Vital Signs Vital Signs - 24 hr 02/17/24 13:32 02/17/24 13:32 02/17/24 14:23 Temperature 36.8 C Temperature Source Oral Pulse Rate 112 H 112 H 103 H Pulse Rate [Apical] Pulse Rhythm Regular Respiratory Rate 16 16 Respiratory Effort / Characteristics Non-Labored Respiratory Depth Normal Respiratory Pattern Regular Blood Pressure 177/119 H Blood Pressure [Right Arm] Blood Pressure Mean 138 Blood Pressure Mean [Right Arm] Pulse Oximetry 97 97 Oxygen Delivery Method Room Air Room Air Sepsis Recent Fever Within 48 Hours No Sepsis New/Unexplained Change in Mental Status N/A Sepsis Action Taken by Nursing No Action Required 02/17/24 14:37 02/17/24 16:00 Temperature Temperature Source Pulse Rate Pulse Rate [Apical] 95 H 89 Pulse Rhythm Respiratory Rate 13 20 Respiratory Effort / Characteristics Respiratory Depth Respiratory Pattern Blood Pressure Blood Pressure [Right Arm] 156/88 H 160/99 H Blood Pressure Mean Blood Pressure Mean [Right Arm] 110 119 Pulse Oximetry 96 98 Oxygen Delivery Method Room Air Sepsis Recent Fever Within 48 Hours Sepsis New/Unexplained Change in Mental Status Sepsis Action Taken by Nursing Physical Exam GENERAL: oriented to person, place, and time. appears well-developed and well- nourished. HENT: Exam performed. - Head: Normocephalic and atraumatic. EYES: Conjunctivae and EOM are normal. Right eye exhibits no discharge. Left eye exhibits no discharge. No scleral icterus. NECK: Normal range of motion. Neck supple. No JVD present. CV: Tachycardic rate, regular rhythm, normal heart sounds and intact distal pulses. There is no peripheral edema. Palpable radial pulses bue. PULM/CHEST: Effort normal and breath sounds normal. No respiratory distress. No stridor. no wheezes. no rales. ABD: The abdomen is soft. There is no tenderness. NEURO: Motor and sensation grossly intact. SKIN: Skin is warm and dry. He is not diaphoretic. PSYCH: normal mood and affect. Behavior is normal. Judgment and thought content normal. Course Course 1332: The patient was evaluated in room C11. A complete history and physical exam was performed Cardiac monitoring: An order was placed for continuous cardiac monitoring. The monitor shows a rate of 80 with sinus rhythm interpreted by me 1400: Vital signs stable. Patient reports no chest pain at this time. 1500: Vital signs stable. Patient reports no chest pain at this time. No difficulty breathing. D-dimer is positive. Will order CT of the chest. 1552: Signs stable. Troponin negative. Spoke with Dr. Burger. He states the patient's CT of the chest is negative for PE however there are infectious nodules with groundglass appearance. Not concerning for TB. Could be related to a fungal infection with the patient's recent travel history. 1604: Spoke with Dr. Palacios on-call pulmonology who reviewed the patient's CT scan. He states he thinks the patient needs to have bronchoscopy done. He states he will come down to evaluate the patient. 1620: Vital signs stable. Labs show normal white blood cell count 8.94. Hemoglobin stable at 15.5. Coagulation studies are within normal limits. Potassium 3.5. 2 sets of high-sensitivity troponins negative. Bio fire is positive for enterovirus rhinovirus. Lyme screen negative. Long discussion with the patient and family at bedside. Refill request to admit the patient to the hospitalist team so that he can have further cardiac testing done such as a stress test as well as have bronchoscopy performed by pulmonology. Dr. Griffin at bedside evaluated the patient. Administered Medications Discontinued Medications Sodium Chloride (Nss) 500 mls @ 999 mls/hr IV .Q31M ONE Stop: 02/17/24 14:09 Last Infusion: 02/17/24 14:27 Dose: Infused Documented By: Admin: 02/17/24 13:49 Dose: 999 mls/hr Documented By: TATIANA Ioversol (Optiray 320 125ml) 119 ml IV ONCE ONE Stop: 02/17/24 15:27 Last Admin: 02/17/24 15:27 Dose: 119 ml Documented By: DANIEL Medical Decision Making Laboratory Data Attestation: I reviewed the patient's lab results. 02/17/24 13:38 02/17/24 15:36 Labs: Lab Results 02/17/24 02/17/24 02/17/24 Range/Units 13:35 13:38 13:50 WBC 8.94 (4.8-10.8) K/ul RBC 5.18 (4.70-6.10) M/uL Hgb 15.5 (14.0-18.0) g/dl Hct 45.4 (42.0-52.0) % MCV 87.6 (80.0-100.0) fL MCH 29.9 (25.0-34.0) pg MCHC 34.1 (32.0-36.0) g/dL RDW Std Deviation 40.7 (36.4-46.3) fL RDW Coeff of Ninoska 12.7 (11.5-14.5) % Plt Count 259 (130-400) K/uL MPV 9.7 (9.4-12.4) fL Immature Gran % (Auto) 0.2 % Neut % (Auto) 47.5 % Lymph % (Auto) 41.1 % Cross % (Auto) 8.7 % Eos % (Auto) 1.6 % Baso % (Auto) 0.9 % Neut # (Auto) 4.25 (1.40-6.50) K/uL Lymph # (Auto) 3.67 H (1.20-3.40) K/uL Cross # (Auto) 0.78 H (0.11-0.59) K/uL Eos # (Auto) 0.14 (0.00-0.50) K/uL Baso # (Auto) 0.08 (0.00-0.20) K/uL Immature Gran # (Auto) 0.02 (0.01-0.20) K/uL PT 10.6 (9.0-12.0) Seconds INR 1.0 (0.9-1.1) APTT 26 (21-31) Seconds PTT Ratio 0.9 D-Dimer 700 H* (0-500) ug/L FEU Sodium 139 (136-145) mmol/L Potassium TNP Chloride 102 (98-107) mmol/L Carbon Dioxide 28 (21-32) mmol/L Anion Gap 9 (3-11) BUN 18 (6-23) mg/dl Creatinine 1.11 (0.6-1.4) mg/dl Est Cr Clr Drug Dosing 95.9 ml/min Est GFR ( Amer) 87.4 ml/min Est GFR (Non-Af Amer) 75.4 ml/min BUN/Creatinine Ratio 16.2 (10-20) Glucose 195 H (70-99(Fasting)) mg/dl POC Glucose 192 H (70-99) mg/dl Calcium 9.7 (8.6-10.3) mg/dl Troponin I High Sens 14.6 (0-20) pg/ml Lipase 38 (11-82) U/L Adenovirus (PCR) Not Detected (NotDetected) Anaplasma Smear See Comment Babesia Smear See Comment B. pertussis DNA (PCR) Not Detected (NotDetected) B.parapertussis DNA PCR Not Detected (NotDetected) Lyme Disease Screen Negative (Negative) C. pneumoniae DNA (PCR) Not Detected (NotDetected) Coronavirus OC43 (PCR) Not Detected (NotDetected) Coronavirus HKU1 (PCR) Not Detected (NotDetected) Coronavirus 229E (PCR) Not Detected (NotDetected) SARS-CoV-2 (PCR) Not Detected (NotDetected) Coronavirus NL63 (PCR) Not Detected (NotDetected) Human Metapneumovir PCR Not Detected (NotDetected) Influenza Type A (PCR) Not Detected (NotDetected) Influenza Type B (PCR) Not Detected (NotDetected) M. pneumoniae (PCR) Not Detected (NotDetected) Parainfluenza 1 (PCR) Not Detected (NotDetected) Parainfluenza 2 (PCR) Not Detected (NotDetected) Parainfluenza 3 (PCR) Not Detected (NotDetected) Parainfluenza 4 (PCR) Not Detected (NotDetected) RSV (PCR) Not Detected (NotDetected) Entero/Rhino (PCR) DETECTED A (NotDetected) 02/17/24 Range/Units 15:36 WBC (4.8-10.8) K/ul RBC (4.70-6.10) M/uL Hgb (14.0-18.0) g/dl Hct (42.0-52.0) % MCV (80.0-100.0) fL MCH (25.0-34.0) pg MCHC (32.0-36.0) g/dL RDW Std Deviation (36.4-46.3) fL RDW Coeff of Ninoska (11.5-14.5) % Plt Count (130-400) K/uL MPV (9.4-12.4) fL Immature Gran % (Auto) % Neut % (Auto) % Lymph % (Auto) % Cross % (Auto) % Eos % (Auto) % Baso % (Auto) % Neut # (Auto) (1.40-6.50) K/uL Lymph # (Auto) (1.20-3.40) K/uL Cross # (Auto) (0.11-0.59) K/uL Eos # (Auto) (0.00-0.50) K/uL Baso # (Auto) (0.00-0.20) K/uL Immature Gran # (Auto) (0.01-0.20) K/uL PT (9.0-12.0) Seconds INR (0.9-1.1) APTT (21-31) Seconds PTT Ratio D-Dimer (0-500) ug/L FEU Sodium (136-145) mmol/L Potassium 3.5 Chloride (98-107) mmol/L Carbon Dioxide (21-32) mmol/L Anion Gap (3-11) BUN (6-23) mg/dl Creatinine (0.6-1.4) mg/dl Est Cr Clr Drug Dosing ml/min Est GFR ( Amer) ml/min Est GFR (Non-Af Amer) ml/min BUN/Creatinine Ratio (10-20) Glucose (70-99(Fasting)) mg/dl POC Glucose (70-99) mg/dl Calcium (8.6-10.3) mg/dl Troponin I High Sens 13.1 (0-20) pg/ml Lipase (11-82) U/L Adenovirus (PCR) (NotDetected) Anaplasma Smear Babesia Smear B. pertussis DNA (PCR) (NotDetected) B.parapertussis DNA PCR (NotDetected) Lyme Disease Screen (Negative) C. pneumoniae DNA (PCR) (NotDetected) Coronavirus OC43 (PCR) (NotDetected) Coronavirus HKU1 (PCR) (NotDetected) Coronavirus 229E (PCR) (NotDetected) SARS-CoV-2 (PCR) (NotDetected) Coronavirus NL63 (PCR) (NotDetected) Human Metapneumovir PCR (NotDetected) Influenza Type A (PCR) (NotDetected) Influenza Type B (PCR) (NotDetected) M. pneumoniae (PCR) (NotDetected) Parainfluenza 1 (PCR) (NotDetected) Parainfluenza 2 (PCR) (NotDetected) Parainfluenza 3 (PCR) (NotDetected) Parainfluenza 4 (PCR) (NotDetected) RSV (PCR) (NotDetected) Entero/Rhino (PCR) (NotDetected) Imaging Data Chest x-ray: Radiologist's impression: XR chest 2V PA/lateral CLINICAL HISTORY: Chest pain, nonspecific COMPARISON STUDY: Chest radiograph and chest CT October 19, 2017. FINDINGS: Lung volumes are normal. There is no consolidation to suggest pneumonia. 9 mm nodular density within the right midlung is noted. There is no pneumothorax or pleural effusion. Cardiac size is normal. Mediastinal contours are normal. There is no evidence for pulmonary edema. IMPRESSION: 1. No acute cardiopulmonary findings. 2. 9 mm nodular density within the right midlung. This may be due to summation artifact. However, a nonemergent chest CT is recommended to exclude a pulmonary nodule. ACT 112: Positive. There are findings on this exam that require communication between the performing entity and the patient following Patient Test Result Information Act ([place] Act 112) guidelines. Electronically signed by: Delio Burger M.D. 02/17/2024 2:39 PM Dictated: 02/17/241435 Transcribed: 02/17/241435 CT scan - chest: Radiologist's impression: CT ANGIOGRAPHY OF THE CHEST, PULMONARY EMBOLUS PROTOCOL CLINICAL HISTORY: Intermittent chest pain and diaphoresis. COMPARISON STUDY: Chest CT October 19, 2017. Chest radiograph performed earlier today. TECHNIQUE: Following IV administration of 119 mL of Optiray, helical axial images of the chest were obtained utilizing the pulmonary embolus protocol. Maximal intensity projections and sagittal and coronal reformats were viewed on an independent 3D workstation. IV contrast was administered without complication. Automated exposure control was utilized for the study. A dose lowering technique was utilized adhering to the principles of ALARA. CT DOSE: 820.5 mGy.cm FINDINGS: No pulmonary emboli are identified. There is no thoracic aortic dissection. The size of the heart is normal. A prominent subcarinal lymph node measures 1.4 x 1 cm. There are several mildly enlarged right hilar lymph nodes. Index node on image 88 measures 1.5 x 1.3 cm. There are a few prominent left hilar lymph nodes. No pneumothorax or pleural effusion is present. Several nodular opacities with mild associated groundglass opacity are present, including a 1 cm focus within the anterior segment of the right upper lobe on image 104 of 219. This corresponds to the pulmonary nodule on chest CT from earlier today. Nodules are greater number within the right lung. 1.1 cm ill- defined opacity within the lingula is also likely infectious. No cavitation is present. There is no associated pleural effusion. Bony thorax and visualized portions of the upper abdomen are unremarkable. IMPRESSION: 1. No pulmonary emboli identified. 2. Several small nodular opacities with mild adjacent groundglass opacity, including a 1 cm focus within the right upper lobe which accounts for the pulmonary nodule on chest radiograph. These are nonspecific but favor an infectious etiology, possibly atypical. No confluent consolidation. No cavitation. A chest CT in 2 months to ensure resolution is recommended. 2. Mildly enlarged bilateral hilar lymph nodes. These are likely reactive but should be assessed on follow-up chest CT to ensure resolution. ACT 112: Negative or not required by law. Electronically signed by: Delio Burger M.D. 02/17/2024 5:04 PM Dictated: 02/17/24 1533 Transcribed: 02/17/24 1547 ECG Data Attestation: I personally reviewed and interpreted this ECG as follows: Additional Comments: EKG #1 at 1330: Sinus tachycardia with a rate of 121. RI 160 QRS [address] elevation or ST depression. EKG #2 at 1340: Sinus rhythm with a rate of 83. RI 138 QRS [address] elevation or ST depression. [facility] Narrative 1332: The patient was evaluated in room C11. A complete history and physical exam was performed Cardiac monitoring: An order was placed for continuous cardiac monitoring. The monitor shows a rate of 80 with sinus rhythm interpreted by me 1400: Vital signs stable. Patient reports no chest pain at this time. 1500: Vital signs stable. Patient reports no chest pain at this time. No difficulty breathing. D-dimer is positive. Will order CT of the chest. 1552: Signs stable. Troponin negative. Spoke with Dr. Burger. He states the patient's CT of the chest is negative for PE however there are infectious nodules with groundglass appearance. Not concerning for TB. Could be related to a fungal infection with the patient's recent travel history. 1604: Spoke with Dr. Palacios on-call pulmonology who reviewed the patient's CT scan. He states he thinks the patient needs to have bronchoscopy done. He states he will come down to evaluate the patient. 1620: Vital signs stable. Labs show normal white blood cell count 8.94. Hemoglobin stable at 15.5. Coagulation studies are within normal limits. Potassium 3.5. 2 sets of high-sensitivity troponins negative. Bio fire is positive for enterovirus rhinovirus. Lyme screen negative. Long discussion with the patient and family at bedside. Refill request to admit the patient to the hospitalist team so that he can have further cardiac testing done such as a stress test as well as have bronchoscopy performed by pulmonology. Dr. Griffin at bedside evaluated the patient. Impression & Plan Chest pain, Multiple pulmonary nodules Discharge Plan Visit Data Chief Complaint: Chest Pain Stated Complaint: CHEST PAIN ED Provider: Sukhdeep Small Discharge Problem: Chest pain, Multiple pulmonary nodules Patient Disposition: Being Evaluated by Hospitalist Forms Stand Alone Forms: My [facility] Prescriptions Prescriptions: No Action cholecalciferol (vitamin D3) 50 mcg (2,000 unit) capsule 2,000 unit PO DAILY Qty: 30 0RF Rx Instructions: unable to verify, otc 02/17/24 (DME) lancets [Accu-Chek Fastclix Lancet Drum] Misc See Dose Instructions .ROUTE .MEDSUPPLY Qty: 300 3RF Dose Instruction: As directed Rx Instructions: test blood sugar 3 x daily (DME) Accu-Chek Guide test strips Strip See Dose Instructions .ROUTE .MEDSUPPLY Qty: 300 3RF Dose Instruction: As directed Rx Instructions: test blood sugar 3 x daily lisinopril 40 mg tablet 40 mg PO DAILY Qty: 90 3RF chlorthalidone 25 mg tablet 25 mg PO DAILY Qty: 90 3RF (DME) Dexcom G6 Sensor Device See Rx Instructions .MEDSUPPLY Qty: 9 3RF Rx Instructions: As directed to change every 10 days (DME) Dexcom G6 Transmitter Device See Rx Instructions miscellaneous .MEDSUPPLY Qty: 1 3RF Rx Instructions: As directed change every 3 months levothyroxine 112 mcg tablet 112 mcg PO DAILY Qty: 90 3RF insulin aspart U-100 [Novolog U-100 Insulin aspart] 100 unit/mL solution 100 unit continuous subcutaneous infusion DAILY 90 Days Qty: 90 3RF Rx Instructions: Basal rate: 1.05units/hr x 24 hrs Carb ratio: 1 unit per 10gm CHO consumed Sensitivity factor: 1 unit per 50mg/dL/unit elevation above goal atorvastatin 80 mg tablet 80 mg PO DAILY Qty: 90 3RF aspirin 325 mg tablet 325 mg PO DAILY (DME) BD Insulin Syringe U-500 1/2 mL 31 gauge x 15/64" syringe See Dose Instructions .ROUTE .MEDSUPPLY Qty: 100 Hold Instructions: pt does not use;poss. wrong syringe size Rx Instructions: For use when insulin pump fails diltiazem HCl 240 mg capsule,extended release 24hr 360 mg PO DAILY Rx Instructions: per pt 300 mg Referrals Referrals: Jayshree Dietrich DO [Primary Care Provider] - Discharge Problem: Chest pain Qualifiers: Chest pain type: unspecified Qualified Code(s): R07.9 - Chest pain, unspecified
[2024-02-17] MEDS ORDERED: ACETAMINOPHEN 325 MG TAB PO PRN (18:40)
[2024-02-17] MEDS ORDERED: NITROGLYCERIN SL 0.4 MG/TAB TAB SL PRN (18:40)
[2024-02-17] MEDS: Continuous Glucose Monitor SCH (22:08)
[2024-02-18] MEDS: LEVOTHYROXINE SODIUM 112 MCG TABLET PO SCH (06:47)
[2024-02-18 07:11] LABS: Basophils # (auto) 0.06 K/uL (0.00-0.20); Basophils % (auto) 0.8 %; Eosinophils # (auto) 0.19 K/uL (0.00-0.50); Eosinophils % (auto) 2.7 %; Hematocrit (blood only) 42.9 % (42.0-52.0); Hemoglobin 15.2 g/dl (14.0-18.0); Immature Granulocytes # (auto) 0.01 K/uL (0.01-0.20); Immature Granulocytes % (auto) 0.1 %; Lymphocytes # (auto) 2.99 K/uL (1.20-3.40); Lymphocytes % (auto) 42.1 %; Mean Corpuscular Hemoglobin 30.3 pg (25.0-34.0); Mean Corpuscular Hgb Conc 35.4 g/dL (32.0-36.0); Mean Corpuscular Volume 85.6 fL (80.0-100.0); Mean Platelet Volume 9.2 fL (9.4-12.4); Monocytes # (auto) 0.78 K/uL (0.11-0.59); Neutrophils # (auto) 3.08 K/uL (1.40-6.50); Neutrophils % (auto) 43.3 %; Platelet Count 238 K/uL (130-400); RDW Coefficient of Variation 12.8 % (11.5-14.5); RDW Standard Deviation 39.7 fL (36.4-46.3); Red Blood Count 5.01 M/uL (4.70-6.10); White Blood Count 7.11 K/ul (4.8-10.8)
[2024-02-18 07:21] LABS: Calcium 9.1 mg/dl (8.6-10.3); Potassium 3.3 mmol/L (3.5-5.1)
[2024-02-18 07:27] LABS: Creatinine Clr Calc Pharmacy 111.2 ml/min; Est GFR (African American) 99.2 ml/min; Est GFR (Non-African American) 85.5 ml/min
--- NOTE | 2024-02-18 07:43 | Hospitalist Progress Note ---
Date of Service February 18, 2024 Assessment & Plan (1) Upper respiratory infection, viral: Plan: Chest pain, shortness of breath, elevated d Dimer, negative CTA for PE however small nodular opacities with surrounding ground glass . A chest CT in 2 months to ensure resolution is recommended. - Pulmonology consulted, anticipate bronchoscopy in the a.m. 02/18/24 Recent travel to [facility] where Chagas, leishmaniasis, hantavirus, Dengue are endemic. Patient has not had rash. No headache. Does have right shoulder pain. No leukopenia. No temporal/ocular pain. Low suspicion for dengue, is outside of the 2-week incubation. No fever or localized infection/swelling to suggest Chagas. - Rhino/adeno virus positive Fungitell, histoplasma, coccidiomycosis, and Aspergillus testing pending (2) Chest pain: Plan: Multiple intermittent episodes of chest pain, pt concern for CAD with diabetic, family history and htn history High sensitive troponin x 2 are normal no acute ischemic findings on EKG, (3) Hypothyroidism: Plan: James thyroiditis Continue Synthroid daily (4) Diabetes type 1, controlled: Plan: Type 1 diabetes mellitus well-controlled as outpatient Uses insulin pump, prefers to keep pump on with self-manage control. Will continue in place on every 4 hour checks while NPO. -N.p.o. at midnight, D5 LR while n.p.o. (5) Hypertension: Plan: Hypertension Continue diltiazem, chlorthalidonelisinopril held, resume post bron. BP mildly elevated in ER Plan DVT prophylaxis: SCDs, Lovenox Diet: Type I DM, n.p.o. midnight CODE STATUS: Full code Admission and Anticipated Discharge Date Admission Date: February 17, 2024 Results & Data Results & Data Vital Signs (Past 12 Hours) Vital Signs Temp Pulse Pulse Resp BP Pulse Ox O2 Del Method 02/18/24 04:00 81 18 139/84 98 Room Air 02/17/24 23:21 72 02/17/24 22:09 81 02/17/24 22:09 98.4 F 02/17/24 21:51 80 19 144/94 H 96 Room Air PG Care Time/CCT Total # of Minutes Spent Total Time Spent with Patient: Total time spent is greater than 50% in coordination of care (as documented) at patient's floor/unit and/or counseling patient: Coding Diagnoses Upper respiratory infection, viral J06.9 Chest pain R07.9 Chest pain type: unspecified Hypothyroidism E03.9 Diabetes type 1, controlled E10.9 Hypertension I10 (2) Chest pain Chest pain type: unspecified Qualified Code(s): R07.9 - Chest pain, unsp ecified
[2024-02-18] MEDS: ATORVASTATIN 40 MG TAB PO SCH (08:22)
[2024-02-18] MEDS: POTASSIUM CHLORIDE CRTAB 20 MEQ TABCR PO STA (08:22)
[2024-02-18] MEDS: ASPIRIN 325 MG ECTAB PO SCH (08:22)
[2024-02-18] MEDS: dilTIAZem HCL 300 MG CAPCR PO SCH (08:23)
[2024-02-18] MEDS: CHLORTHALIDONE 25 MG TAB PO SCH (08:23)
[2024-02-18] MEDS: ENOXAPARIN INJ 40 MG/0.4 ML SYR SQ SCH (09:01)
[2024-02-18] MEDS: dilTIAZem HCL 180 MG CAPCR PO SCH (09:19)
[2024-02-18] MEDS: lisinopril 40 MG TAB PO SCH (09:26)
--- NOTE | 2024-02-18 10:13 | History & Physical Bridge Note ---
Date of Service February 18, 2024 History & Physical Bridge Note I have examined the patient, reviewed the History & Physical and in the interval since the performance of the History & Physical I have noted the following changes of clinical significance: no changes noted
--- NOTE | 2024-02-18 10:13 | Pre Anesthesia Assessment ---
Date of Service February 18, 2024 Pre Sedation Assessment Vital Signs Temp Pulse Pulse Resp BP BP Pulse Ox 02/18/24 09:58 82 16 150/97 H 98 02/18/24 08:27 88 20 140/93 94 02/18/24 07:56 91 H 02/18/24 04:00 81 18 139/84 98 02/17/24 23:21 72 02/17/24 22:09 81 02/17/24 22:09 36.9 C 02/17/24 21:51 80 19 144/94 H 96 02/17/24 18:43 02/17/24 18:43 78 16 125/80 98 02/17/24 16:00 89 20 160/99 H 98 02/17/24 14:37 95 H 13 156/88 H 96 02/17/24 14:23 103 H 02/17/24 13:32 112 H 16 97 02/17/24 13:32 36.8 C 112 H 16 177/119 H 97 Pulse Ox O2 Del Method O2 Del Method 02/18/24 09:58 Room Air 02/18/24 08:27 Room Air 02/18/24 07:56 02/18/24 04:00 Room Air 02/17/24 23:21 02/17/24 22:09 02/17/24 22:09 02/17/24 21:51 Room Air 02/17/24 18:43 98 Room Air 02/17/24 18:43 Room Air 02/17/24 16:00 Room Air 02/17/24 14:37 02/17/24 14:23 02/17/24 13:32 Room Air 02/17/24 13:32 Room Air Cardiovascular RRR, no murmur, no edema + regular rate and + regular rhythm + S1 normal and + S2 normal + capillary refill normal Respiratory normal respiratory effort, lungs clear to auscultation + respiratory effort normal and + tachypneic; no cough + clear to auscultation bilaterally Pre-Sedation Airway Assessment Smoking Status: Never smoker Hx Sleep Apnea: No Short, Thick Neck: No Thyromental Distance: > or= 3.5 Finger Breadths Oral Cavity: + WNL Mallampati Class: III ASA: ASA3 NPO Status Date of Last Intake of Fluids: 02/17/24 Time of Last Intake of Fluids: 20:00 Date of Last Intake of Solid Food: 02/17/24 Time of Last Intake of Solid Foods: 20:00 Procedure Planning Contraindications for Sedation: none Current Medications Reviewed: Yes Notes The planned sedation has been discussed with the patient. Informed Consent was obtained. I have identified the patient, determined the appropriateness of sedation and have assessed the patient immediately prior to the procedure. All medicine(s) and interventions are by my order.
--- NOTE | 2024-02-18 10:33 | Post Anesthesia Assessment ---
Date of Service February 18, 2024 Post Sedation Assessment Vital Signs Temp Pulse Pulse Resp BP BP Pulse Ox 02/18/24 10:23 77 18 128/86 95 02/18/24 10:20 102 H 18 151/98 H 94 02/18/24 09:58 82 16 150/97 H 98 02/18/24 08:27 88 20 140/93 94 02/18/24 07:56 91 H 02/18/24 04:00 81 18 139/84 98 02/17/24 23:21 72 02/17/24 22:09 81 02/17/24 22:09 36.9 C 02/17/24 21:51 80 19 144/94 H 96 02/17/24 18:43 02/17/24 18:43 78 16 125/80 98 02/17/24 16:00 89 20 160/99 H 98 02/17/24 14:37 95 H 13 156/88 H 96 02/17/24 14:23 103 H 02/17/24 13:32 112 H 16 97 02/17/24 13:32 36.8 C 112 H 16 177/119 H 97 Pulse Ox O2 Del Method O2 Del Method O2 Flow Rate 02/18/24 10:23 Oxymask 6 02/18/24 10:20 Oxymask 10 02/18/24 09:58 Room Air 02/18/24 08:27 Room Air 02/18/24 07:56 02/18/24 04:00 Room Air 02/17/24 23:21 02/17/24 22:09 02/17/24 22:09 02/17/24 21:51 Room Air 02/17/24 18:43 98 Room Air 02/17/24 18:43 Room Air 02/17/24 16:00 Room Air 02/17/24 14:37 02/17/24 14:23 02/17/24 13:32 Room Air 02/17/24 13:32 Room Air Recovery Score Activity: Moves 4 extremities Respiration: Deep Breath/Cough Circulation: +/-20% PreAnes Value Consciousness: Fully Awake Oxygen Saturation: O2 needed for >90% Post Anesthesia Score: 9 Discharge Sedation Level of Care: Fast Track Phase II Post Sedation Plan On clinical assessment, the patient appears to have tolerated the sedation without complications. Patient is recovering as anticipated. Patient will continue to be monitored by nursing and may be discharged when sedation discharge criteria are met per below protocol. Upon Completions of procedure up to 15 minutes continue every 5 minute vital signs and the P.A.R. score; then discharge to a Phase I or Fast Track to Phase II per the following guidelines: * Discharge Patient to appropriate Phase II area if PAR is 8 or greater or return to pre- procedure baseline. The post - procedure orders will be as directed. * If PAR score is less than 8 or not return to pre-procedure baseline then patient will follow Phase I monitoring till PAR is reached for Phase II. The Phase I may be done in procedure room or may call to secure a Phase I area. * If naloxone or flumazenil are used for reversal, hold in Phase I for continued monitoring from when last reversal dose was given for a minimum of 60 minutes or longer pending the nurse and/or physician discretion of patient condition before discharge to Phase II. Please call the Sedation Physician to re-evaluate and complete post-note for discharge to Phase II area. Do NOT discharge from procedure sedation or Phase 1 until post- sedation evaluation note is complete by procedure /sedation MD Sedation Discharge Instructions to be given to the patient at discharge to home. [facility] [place] Procedure Codes (Charges) Pulmonary/Thoracic Procedure 1: Pulmonary and Thoracic: 53563 Dx bronchoscopy/wash
--- NOTE | 2024-02-18 10:36 | Procedure Note ---
Procedure Note: Bronchoscopy Procedure PREOPERATIVE DIAGNOSIS: Multifocal pulmonary nodules on CT chest POSTOPERATIVE DIAGNOSIS: Multifocal pulmonary nodules in CT PROCEDURE PERFORMED: Flexible fiberoptic bronchoscopy with bronchial washings from the right lower lobe, right middle lobe and right upper lobe COMPLICATIONS: None. INDICATION: Evaluate for infectious etiology PROCEDURE: After obtaining an informed consent, the patient was brought to the Bronchoscopy Suite. The patient had appropriate oxygen, blood pressure, heart ra te, and respiratory rate monitoring applied and monitored continuously throughout the procedure. Supplemental oxygen via nasal cannula as per nursing records was applied to the nasopharynx with adequate saturations achieved. Topical anesthesia with nebulized 1% lidocaine was achieved. Subsequent to this, the patient was premedicated with 3 mg of midazolam and 100 mcg of fentanyl. Bronchoscope was inserted via the mouth through a bite block. Oropharynx. Normal. Epiglottis and vocal cords were visualized and appeared normal with normal movement. Lidocaine was instilled on top of the epiglottis and vocal cords. Scope was passed through the vocal cords. Trachea appeared normal. Kitty appeared sharp. Bilateral tracheobronchial tree inspection was performed in the airways. Unremarkable. Approximately 60 cc of saline was flushed initially pressure aliquots in the right lower lobe, right middle lobe and right upper lobe. Approximately 40 mL of fluid was aspirated back. Patient tolerated procedure well. The scope was then completely withdrawn. Bronchial specimens will be sent to the lab for cultures, cytology and further testing. Recommendations: Follow bronch specimens from the right bronchial washings. [facility] [place] Procedure Codes (Charges) Pulmonary/Thoracic Procedure 1: Pulmonary and Thoracic: 90297 Dx bronchoscopy/wash Sedation/Anesthesia Procedure 1: Sedation/Anesthesia: 44566 Mod Sedation by the same physician;Init15 Min Child Age 5 & Up Total Sedation Time (minutes): 8
[2024-02-18] MEDS: fentaNYL citrate PF 100 MCG/2 ML VIAL ONE (10:52)
[2024-02-18] MEDS: MIDAZOLAM HCL 5 MG/ML 1 ML VIAL ONE (10:52)
--- NOTE | 2024-02-18 11:00 | Pulmonology Progress Note ---
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 Chest CT revealed small inflammatory looking nodules p redominantly in the right side along with associated hilar adenopathy. Etiology of inflammatory nodules is unclear, but may certainly be related to patient's acute viral illness. Other possibilities include atypical infection such as fungal infections and other atypical bacterial infections. Will send for urine histoplasma antigen, Aspergillus galactomannan antigen, Fungitell and coccidiomycosis antibodies. Other possibilities include inflammatory condition such as sarcoidosis and less likely malignancy. Bronchoscopy performed today with bronchial washings of the right side which have been sent for cultures, antifungal studies, cell count and cytology. Will start the patient on Augmentin and doxycycline. Would recommend treating for total 7 days. Will need a follow-up CT in 6 weeks. Patient is stable for discharge later today from pulmonary perspective. Admission and Anticipated Discharge Date Admission Date: February 17, 2024 Subjective No major complaints this morning. Still dealing with some mild arthralgias and myalgias. Denies any shortness of breath or chest pain. Review of Systems Review of Systems: All systems reviewed & are unremarkable except as noted in HPI & below Physical Exam Physical Exam: Constitutional: Patient appears to be of their stated age. Patient is in no apparent distress. Patient is well-developed. Eyes: Pupils are equal round and reactive to light. Conjunctivae are normal. Anicteric sclera. Ears nose, mouth and throat: Mallampati class 1. Normal posterior oropharynx. Uvula is midline. Neck: Trachea is midline. Visual inspection is normal. Respiratory: Clear to auscultation bilaterally. No use of accessory muscles. No significant clubbing noted. Cardiovascular: Regular rate and rhythm. No murmurs. No edema. Gastrointestinal: Normal bowel sounds, soft, nontender and nondistended. No hepatosplenomegaly noted. Musculoskeletal: No cyanosis. Patient is able to move all extremities. Strength is 5 out of 5 in the upper and lower extremities. Skin: No rashes, warm dry and intact. Neurologic: No obvious focal neurological deficits seen. Psychiatric: Alert and oriented x3 with a euthymic affect. Results & Data Results & Data Vital Signs (Past 12 Hours) Vital Signs Pulse Pulse Resp BP Pulse Ox O2 Del Method O2 Flow Rate 02/18/24 10:40 82 16 119/70 94 Oxymask 4 02/18/24 10:25 79 16 125/83 93 Oxymask 4 02/18/24 10:23 77 18 128/86 95 Oxymask 6 02/18/24 10:20 102 H 18 151/98 H 94 Oxymask 10 02/18/24 09:58 82 16 150/97 H 98 Room Air 02/18/24 08:27 88 20 140/93 94 Room Air 02/18/24 07:56 91 H 02/18/24 04:00 81 18 139/84 98 Room Air 02/17/24 23:21 72 PG Care Time/CCT Total # of Minutes Spent Total Time Spent with Patient: Total time spent is greater than 50% in coordination of care (as documented) at patient's floor/unit and/or counseling patient: Coding Level of Care Code 24689 SUB INP/OBS CARE 2/35MIN Diagnoses Abnormal CT scan, chest R93.89 Upper respiratory infection, viral J06.9
[2024-02-18] MEDS: DOXYCYCLINE HYCLATE 100 MG CAP PO SCH (12:03)
--- NOTE | 2024-02-18 16:09 | Discharge Summary ---
Date of Service February 18, 2024 Admission HPI Per Admitting Provider Dr. Lemus is a 55-year-old male with a past medical history of NAEEM, controlled type I DM, hypothyroidism, hyperlipidemia who presents to the ER with intermittent chest pain and dyspnea. High sensitivity troponin was normal, EKG was sinus tachycardia without acute ischemic findings. He is entero-/rhinovirus positive. Chest x-ray shows no acute findings; 9 mm nodule density was noted. D-dimer was elevated with recent travel, follow-up CTA shows no evidence of PE however atypical pulmonary nodules with concern for infectious appearance were noted. Case was reviewed with pulmonology, and is recommended for bronchoscopy following morning. Seen at the bedside. Reports Saturday evening started feeling off with Right shoulder pain. Worried about cardiac risk factors. Initial pain was reproducible to palpation. Intermittent symptoms wihch improved with tylenol and ibuprofen but then recurred in 6 to 8 hour cycles. Associated with leg achieness, some chest discomfort. No shortness of breath, no cough. Prompted to come in as one episode with diaphoresis. BSG was normal. 2-3 episodes Beliz 3.5 weeks ago. [place] 2 nights in the [place] and [place] for 3 days with snorkeling. No aspiration. Also recently with travel to [place] Few bug biets no rashes. Not on any prophylaxis No temperature, just felt clammy. Endorses right shoulder pain general feeling of unwellness No pulmonary history. No cough. No sputum production Has seen Dr. Toscano in the past, highly concerned about cardiac risk given multiple comorbidities. Prefers to follow-up with [facility] cardiology if possible. Diltiazem 240 up to 300 with some exercise intolerance, notes to be heart rate Around 150. Had Not Been Having Any Chest Pain with Exercise and Regular Cycling Takes full dose aspirin daily, prefers full dose due to multiple risk factors and strong family history of cardiac disease. Would like to establish with cardiology to see regularly. Diabetes well-controlled on insulin pump, prefers to continue insulin pump on admission Medical History: Reviewed Medications: Reviewed Surgical History: Reviewed Family history: Reviewed Allergies: Reviewed Social History: Reviewed Code Status: Full Principal Diagnosis non cardiac chest pain pneumonitis, ground glass densities on CT-s/p bronchoscopy with cultures possible tic borne illness, secondary testing in process Discharge Exam awake and alert, cardiac exam is regular lungs are clear Discharge Data Allergies Allergy/AdvReac Type Severity Reaction Status Date / Time No Known Drug Allergies Allergy Verified 03/04/23 12:24 Consultations 02/17/24 16:19 ED Decision to Admit Stat Procedures Performed Operation Date: 02/18/24 10:00 Actual Procedures p Bronchoscopy Radiology - Juan Carlos Griffin MD Ordered Studies Chest X-Ray 02/17/24 13:32 XR chest 2V PA/lateral CLINICAL HISTORY: Chest pain, nonspecific COMPARISON STUDY: Chest radiograph and chest CT October 19, 2017. FINDINGS: Lung volumes are normal. There is no consolidation to suggest pneumonia. 9 mm nodular density within the right midlung is noted. There is no pneumothorax or pleural effusion. Cardiac size is normal. Mediastinal contours are normal. There is no evidence for pulmonary edema. IMPRESSION: 1. No acute cardiopulmonary findings. 2. 9 mm nodular density within the right midlung. This may be due to summation artifact. However, a nonemergent chest CT is recommended to exclude a pulmonary nodule. ACT 112: Positive. There are findings on this exam that require communication between the performing entity and the patient following Patient Test Result Information Act ([place] Act 112) guidelines. Electronically signed by: Delio Burger M.D. 02/17/2024 2:39 PM Chest CTA 02/17/24 15:04 CT ANGIOGRAPHY OF THE CHEST, PULMONARY EMBOLUS PROTOCOL CLINICAL HISTORY: Intermittent chest pain and diaphoresis. COMPARISON STUDY: Chest CT October 19, 2017. Chest radiograph performed earlier today. TECHNIQUE: Following IV administration of 119 mL of Optiray, helical axial images of the chest were obtained utilizing the pulmonary embolus protocol. Maximal intensity projections and sagittal and coronal reformats were viewed on an independent 3D workstation. IV contrast was administered without complication. Automated exposure control was utilized for the study. A dose lowering technique was utilized adhering to the principles of ALARA. CT DOSE: 820.5 mGy.cm FINDINGS: No pulmonary emboli are identified. There is no thoracic aortic dissection. The size of the heart is normal. A prominent subcarinal lymph node measures 1.4 x 1 cm. There are several mildly enlarged right hilar lymph nodes. Index node on image 88 measures 1.5 x 1.3 cm. There are a few prominent left hilar lymph nodes. No pneumothorax or pleural effusion is present. Several nodular opacities with mild associated groundglass opacity are present, including a 1 cm focus within the anterior segment of the right upper lobe on image 104 of 219. This corresponds to the pulmonary nodule on chest CT from earlier today. Nodules are greater number within the right lung. 1.1 cm ill- defined opacity within the lingula is also likely infectious. No cavitation is present. There is no associated pleural effusion. Bony thorax and visualized portions of the upper abdomen are unremarkable. IMPRESSION: 1. No pulmonary emboli identified. 2. Several small nodular opacities with mild adjacent groundglass opacity, including a 1 cm focus within the right upper lobe which accounts for the pulmonary nodule on chest radiograph. These are nonspecific but favor an infectious etiology, possibly atypical. No confluent consolidation. No cavitation. A chest CT in 2 months to ensure resolution is recommended. 2. Mildly enlarged bilateral hilar lymph nodes. These are likely reactive but should be assessed on follow-up chest CT to ensure resolution. Electronically signed by: Delio Burger M.D. 02/17/2024 5:04 PM otocol Stat Hospital Course (1) Upper respiratory infection, viral: Chest pain, shortness of breath, elevated d Dimer, negative CTA for PE however small nodular opacities with surrounding ground glass . A chest CT in 2 months to ensure resolution is recommended. - Pulmonology consulted, anticipate bronchoscopy in the a.m. 02/18/24 Recent travel to [facility] where Chag[place], leishmaniasis, hantavirus, Dengue are endemic. Patient has not had rash. No headache. Does have right shoulder pain . No leukopenia. No temporal/ocular pain. Low suspicion for dengue, is outside of the 2-week incubation. No fever or localized infection/swelling to suggest Chagas. - Rhino/adeno virus positive, recommend supportive care Fungitell, histoplasma, coccidiomycosis, and Aspergillus testing pending at time of discharge given unexplained nodules and pending tic testing and exposure to tic we elected to complete outpt doxycycline 10 day course Bronchoscopy and bronchial washing sent by Dr Cuadra (2) Chest pain: Multiple intermittent episodes of chest pain, pt concern for CAD with diabetic, family history and htn history High sensitive troponin x 2 are normal no acute ischemic findings on EKG, pt underwent stress echo without concern for myocardial ischemia (3) Hypothyroidism: James thyroiditis Continue Synthroid daily (4) Diabetes type 1, controlled: Type 1 diabetes mellitus well-controlled as outpatient Uses insulin pump, prefers to keep pump on with self-manage control. Will continue in place on every 4 hour checks while NPO. -N.p.o. at midnight, D5 LR while n.p.o. (5) Hypertension: Hypertension intermediately controlled Continue diltiazem, chlorthalidonelisinopril counselled regarding salt intake will follow up with cardiology Plan Diet: Type I DM,on insulin pump CODE STATUS: Full code Total Time Total Time Spent Total Time Spent (In Minutes): It required greater than 30 minutes to prepare this patient for discharge. Discharge Plan Discharge Items Patient Disposition: Home - Self-Care Reason For Visit: CHEST PAIN, PULMONARY NODULES Discharge Diagnosis: non cardiac chest pain lung nodules bronchitis Activity: Resume your previous activity Non-emergency contact: Primary Care Provider, Heel Pricker and [employer] Call non-emergency contact if: your symptoms worsen Follow-up/Referrals: Kiran Toscano MD [Physician] - 02/20/24 9:45 am Juan Carlos Griffin MD [Physician] - 03/06/24 3:30 pm (pulm follow up) Jayshree Dietrich DO [Primary Care Provider] - 02/20/24 8:25 am (Follow up appointment with Dr. Nash) Diet: Regular Addtl Attending Provider Instructions: you did have a negative stress test and a bronchoscopy, your bronchoscopy results will be discussed at your follow up appt continue to complete a treatment with doxycycline for a total of 10 days Pending Studies at Discharge: No Stand-Alone Forms: My [facility] [employer], Smoking Cessation Medications and DC Order Prescriptions: New doxycycline hyclate 100 mg Capsule 100 mg PO BID Qty: 18 0RF Continued cholecalciferol (vitamin D3) 50 mcg (2,000 unit) capsule 2,000 unit PO DAILY Qty: 30 0RF Rx Instructions: unable to verify, otc 02/17/24 (DME) lancets [Accu-Chek Fastclix Lancet Drum] Misc See Dose Instructions .ROUTE .MEDSUPPLY Qty: 300 3RF Dose Instruction: As directed Rx Instructions: test blood sugar 3 x daily (DME) Accu-Chek Guide test strips Strip See Dose Instructions .ROUTE .MEDSUPPLY Qty: 300 3RF Dose Instruction: As directed Rx Instructions: test blood sugar 3 x daily lisinopril 40 mg tablet 40 mg PO DAILY Qty: 90 3RF chlorthalidone 25 mg tablet 25 mg PO DAILY Qty: 90 3RF (DME) Dexcom G6 Sensor Device See Rx Instructions .MEDSUPPLY Qty: 9 3RF Rx Instructions: As directed to change every 10 days (DME) Dexcom G6 Transmitter Device See Rx Instructions miscellaneous .MEDSUPPLY Qty: 1 3RF Rx Instructions: As directed change every 3 months levothyroxine 112 mcg tablet 112 mcg PO DAILY Qty: 90 3RF insulin aspart U-100 [Novolog U-100 Insulin aspart] 100 unit/mL solution 100 unit continuous subcutaneous infusion DAILY 90 Days Qty: 90 3RF Rx Instructions: Basal rate: 1.05units/hr x 24 hrs Carb ratio: 1 unit per 10gm CHO consumed Sensitivity factor: 1 unit per 50mg/dL/unit elevation above goal atorvastatin 80 mg tablet 80 mg PO DAILY Qty: 90 3RF aspirin 325 mg tablet 325 mg PO DAILY (DME) BD Insulin Syringe U-500 1/2 mL 31 gauge x 15/64" syringe See Dose Instructions .ROUTE .MEDSUPPLY Qty: 100 Hold Instructions: pt does not use;poss. wrong syringe size Rx Instructions: For use when insulin pump fails diltiazem HCl 240 mg capsule,extended release 24hr 360 mg PO DAILY Rx Instructions: per pt 300 mg Discharge Orders: Discharge Order (Routine); Ordered 02/18/24 Ordered By: Yo Gonzáles Admission Data Admit Date/Time: 02/17/24 17:50 Attending Provider: Yo Gonzáles Admit Provider: Pj Underwood Primary Care Provider: Jayshree Dietrich Other Providers: Pj Underwood Coding Level of Care Code 09039 INP/OBS DISCH >30 MIN Diagnoses Upper respiratory infection, viral J06.9 Chest pain R07.9 Chest pain type: unspecified Hypothyroidism E03.9 Diabetes type 1, controlled E10.9 Hypertension I10
[2024-02-18] MEDS ORDERED: AMOXICILLIN/CLAVULANATE 875 MG TAB PO SCH (17:00)
--- NOTE | 2024-02-18 18:01 | XCELERA ---
[id number]
--- NOTE | 2024-02-19 14:54 | Electrocardiogram Report ---
Test Reason : Blood Pressure : / mmHG Vent. Rate : 121 BPM Atrial Rate : 121 BPM P-R Int : 160 ms QRS Dur : 078 ms QT Int : 318 ms P-R-T Axes : 045 -14 062 degrees QTc Int : 451 ms Sinus tachycardia Poor R wave progression, consider anterior IA vs. lead placement vs. LVH Otherwise normal ECG When compared with ECG of 22-APR-2021 11:21, No significant change was found Confirmed by William Maravilla ([id number]) on 02/19/2024 2:54:23 PM Referred By: REFERRED SELF Confirmed By:William Maravilla
--- NOTE | 2024-02-19 14:55 | Electrocardiogram Report ---
Test Reason : Blood Pressure : / mmHG Vent. Rate : 083 BPM Atrial Rate : 083 BPM P-R Int : 138 ms QRS Dur : 080 ms QT Int : 344 ms P-R-T Axes : 033 -12 064 degrees QTc Int : 404 ms Sinus rhythm with marked sinus arrhythmia Poor R wave progression, consider anterior RI vs. lead placement vs. LVH Otherwise normal ECG When compared with ECG of 17-FEB-2024 13:30, (unconfirmed) No significant change was found Confirmed by William Maravilla ([id number]) on 02/19/2024 2:54:50 PM Referred By: REFERRED SELF Confirmed By:William Maravilla
[2024-02-21 00:02] LABS: Babesia microti DNA Not Detected (Not Detected)
[2024-02-21 12:09] LABS: Ehrlichia chaff DNA Bld Negative (Negative)
[2024-02-21 15:57] LABS: Aspergillus Ag Index 0.07 (<0.50); Aspergillus Antigen, Serum Not Detected (Not Detected)
[2024-02-21 19:52] LABS: Legionella DNA, Source BAL; Legionella Species DNA NOT DETECTED; Legionella pneumophila DNA NOT DETECTED
[2024-02-22] MEDS ORDERED: D5W AND LACTATED RINGERS 1,000 ML IV SCH (06:00)
[2024-02-22 18:53] LABS: Coccidioides Ab, CF <1:2 (<1:2); Coccidioides Ab, ID Negative (Negative); Fungitell (1-3)-B-D-Glucan >500 pg/mL
[2024-02-24 00:27] LABS: Q Fever IgG, Phase I NEGATIVE; Q Fever Phase I IgM Antibody NEGATIVE; Q Fever Phase II IgG Antibody NEGATIVE; Q Fever Phase II IgM Antibody NEGATIVE; R. typhi IgG Ab NOT DETECTED; R. typhi IgM Ab NOT DETECTED; RMSF IgG Ab NOT DETECTED; RMSF IgM Ab NOT DETECTED
== END 2024-02-18 16:20 | disposition home or self-care (01) | DRG 206 ==
LOC: ED 13:31 → INTOOBSV 17:50 → EDINP 17:50 → SUATTDRO 17:50 → EDINP 18:39